=== PATIENT | male | born 1975 | race Caucasian/White ===

== ENCOUNTER 2017-01-05 14:25 | Emergency (ER) | payer SELFPAY ==
[~2017-01-05] VITALS: Ht 177.8 cm; Wt 74.8 kg
[~2017-01-05 14:25] MED LIST: No Historical Meds
[2017-01-05] MEDS ORDERED: KETOROLAC 30 MG/ML VIAL (J1885) IV ONE (16:00)
[2017-01-05] MEDS ORDERED: NS 1,000 ML IV ONE (16:00)
[2017-01-05] MEDS ORDERED: FAMOTIDINE IV BAG 20 MG in APPROPRIATE DILUENT 1 EA IV ONE (16:00)
[2017-01-05 16:30] LABS: BASO % 0.5 % (0.0-1.0); EOS # 0.1 K/mm3 (0.0-0.50); EOS % 1.2 % (0.0-3.0); LARGE UNSTAINED CELL # 0.1 K/mm3 (0.0-0.4); LARGE UNSTAINED CELL % 2.2 % (0.0-4.0); LYMPH # 0.6 K/mm3 (1.5-4.5); LYMPH % 9.6 % (24.0-44.0); MEAN CORPUSCULAR HEMOGLOBIN 31.7 pg (27.0-33.0); MEAN CORPUSCULAR HGB CONC 34.6 g/dl (32.0-36.5); MEAN CORPUSCULAR VOLUME 91.8 fl (80.0-96.0); MONO # 0.4 K/mm3 (0.0-0.8); MONO % 8.8 % (0.0-5.0); NEUTROPHILS # 3.7 K/mm3 (1.8-7.7); NEUTROPHILS % 77.6 % (36.0-66.0); PLATELET COUNT, AUTOMATED 180 k/mm3 (150-450); RED CELL DISTRIBUTION WIDTH 12.2 % (11.5-14.5); WHITE BLOOD COUNT 4.8 K/mm3 (4.0-10.0)
[2017-01-05 16:53] LABS: ALBUMIN 3.7 GM/DL (3.2-5.2); ALBUMIN/GLOBULIN RATIO 1.09 (1.00-1.93); ALKALINE PHOSPHATASE 65 U/L (45-117); ALT/SGPT 20 U/L (12-78); ANION GAP 9 MEQ/L (8-16); AST/SGOT 26 U/L (15-37); BILIRUBIN,DIRECT < 0.1 MG/DL (0.0-0.2); BILIRUBIN,TOTAL 0.2 MG/DL (0.2-1.0); BLOOD UREA NITROGEN 12 MG/DL (7-18); CALCIUM LEVEL 8.4 MG/DL (8.5-10.1); CARBON DIOXIDE LEVEL 26 MEQ/L (21-32); CHLORIDE LEVEL 103 MEQ/L (98-107); CREATININE FOR GFR 0.96 MG/DL (0.70-1.30); GLOMERULAR FILTRATION RATE > 60.0 (>60); GLUCOSE, FASTING 99 MG/DL (70-105); POTASSIUM SERUM 3.9 MEQ/L (3.5-5.1); SODIUM LEVEL 138 MEQ/L (136-145); TOTAL PROTEIN 7.1 GM/DL (6.4-8.2)
[2017-01-05] MEDS ORDERED: ZOFR4TAB3 PO (17:45)
[2017-01-05 18:01] VITALS: BP 119/69
== END 2017-01-05 18:25 | disposition home or self-care (01) ==
LOC: M ED 16:46
DX: K52.9 Noninfective gastroenteritis and colitis, unspecified (principal); F17.200 Nicotine dependence, unspecified, uncomplicated
CPT/HCPCS: 80048; 80076; 83690; 85025; 96374; 96375; 99281; J1885

== ENCOUNTER 2019-03-01 15:15 | Observation (INO) | payer OTHER, SELFPAY ==
[~2019-03-01] VITALS: Ht 177.8 cm; Wt 82.0 kg
[~2019-03-01 15:15] MED LIST changes: +ZOFR4TAB14 PO
[2019-03-01] MEDS ORDERED: NS 1,000 ML IV ONE ×2 (15:30→16:15)
[2019-03-01 15:51] LABS: BASO # 0.1 10^3/uL (0.0-0.2); BASO % 0.7 % (0.0-1.0); EOS % 0.3 % (0.0-3.0); HEMATOCRIT 48.1 % (42.0-52.0); HEMOGLOBIN 15.8 g/dl (13.5-17.5); LYMPH % 7.4 % (24.0-44.0); MEAN CORPUSCULAR HEMOGLOBIN 31.4 pg (27.0-33.0); MEAN CORPUSCULAR HGB CONC 32.8 g/dl (32.0-36.5); MEAN CORPUSCULAR VOLUME 95.6 fl (80.0-96.0); MONO # 0.7 10^3/uL (0.0-0.8); MONO % 5.4 % (0.0-5.0); NEUTROPHILS # 11.5 10^3/uL (1.8-7.7); NEUTROPHILS % 85.8 % (36.0-66.0); PLATELET COUNT, AUTOMATED 362 10^3/uL (150-450); RED BLOOD COUNT 5.03 10^6/uL (4.30-6.10); WHITE BLOOD COUNT 13.4 10^3/uL (4.0-10.0)
[2019-03-01] MEDS ORDERED: ONDANSETRON 4MG/2ML VIAL (J2405) IV ONE (16:00)
[2019-03-01 16:06] LABS: INR 0.99; PARTIAL THROMBOPLASTIN TIME 25.8 SECONDS (25.4-37.6); PROTHROMBIN TIME 13.2 SECONDS (12.1-14.4)
[2019-03-01] MEDS ORDERED: LORazepam 2 MG/ML VIAL (J2060) IV STA (16:14)
[2019-03-01 16:46] LABS: ACETAMINOPHEN LEVEL < 2.0 UG/ML (10.0-30.0); ALBUMIN 4.1 GM/DL (3.2-5.2); ALT/SGPT 21 U/L (12-78); BILIRUBIN,DIRECT 0.3 MG/DL (0.0-0.2); BILIRUBIN,TOTAL 0.8 MG/DL (0.2-1.0); BLOOD UREA NITROGEN 12 MG/DL (7-18); C REACTIVE PROTEIN QUANTITATIV < 0.30 MG/DL (0.00-0.30); CALCIUM LEVEL 9.1 MG/DL (8.5-10.1); CARBON DIOXIDE LEVEL 21 MEQ/L (21-32); CHLORIDE LEVEL 102 MEQ/L (98-107); CPK CREATINE PHOSPHOKINASE 107 U/L (39-308); CREATININE FOR GFR 0.94 MG/DL (0.70-1.30); ETHYL ALCOHOL (ETHANOL) 0.034 % (0.000-0.010); FREE T4 1.24 NG/DL (0.76-1.46); GLOMERULAR FILTRATION RATE > 60.0 (>60); GLUCOSE, FASTING 56 MG/DL (70-100); LIPASE 321 U/L (73-393); MB/CK RELATIVE INDEX 1.03 (< OR =4); POTASSIUM SERUM 4.1 MEQ/L (3.5-5.1); SODIUM LEVEL 140 MEQ/L (136-145); THYROID STIMULATING HORMONE 0.281 uIU/ML (0.358-3.740); TOTAL PROTEIN 7.2 GM/DL (6.4-8.2); TROPONIN I < 0.02 NG/ML (< 0.10)
[2019-03-01 17:32] LABS: ERYTHROCYTE SEDIMENTATION RATE 4 mm/hr (0-15)
[2019-03-01] MEDS ORDERED: PROMETHAZINE INJ 25 MG/ML VIAL (J2550) IV ONE (18:15)
[2019-03-01] MEDS ORDERED: KETOROLAC 30 MG/ML VIAL (J1885) IV ONE (18:15)
[2019-03-01] MEDS ORDERED: OXAZEPAM 10 MG CAP PO ONE (18:45)
[2019-03-01] MEDS ORDERED: ISOVUE-370 76% 100ML VIAL (Q9967) As Ordered ONE (18:54)
[2019-03-01 19:02] LABS: AMPHETAMINES LEVEL URINE NEGATIVE (NEGATIVE); BARBITURATES URINE NEGATIVE (NEGATIVE); BENZODIAZEPINES URINE NEGATIVE (NEGATIVE); CANNABINOIDS URINE POSITIVE (NEGATIVE); COCAINE METABOLITE URINE POSITIVE (NEGATIVE); METHADONE URINE NEGATIVE (NEGATIVE); OPIATES URINE NEGATIVE (NEGATIVE); PHENCYCLIDINE URINE NEGATIVE (NEGATIVE)
[2019-03-01] MEDS ORDERED: GI COCKTAIL 50ML BTL(HYOSCYAMINE/MAALOX/LIDOCAINE VISCOUS)(1:3:1) PO ONE (19:30)
--- NOTE | 2019-03-01 20:19 | REPVR ---
EXAM: CT Abdomen and Pelvis With Contrast EXAM DATE/TIME: 03/01/2019 7:11 PM CLINICAL HISTORY: 43 years old, male; Abdominal pain; Generalized TECHNIQUE: Imaging protocol: Axial computed tomography images of the abdomen and pelvis with intravenous contrast. Coronal and sagittal reformatted images were created and reviewed. Radiation optimization: All CT scans at this facility use at least one of these dose optimization techniques: automated exposure control; mA and/or kV adjustment per patient size (includes targeted exams where dose is matched to clinical indication); or iterative reconstruction. Contrast material: ISOVUE 370; Contrast volume: 100 ml; Contrast route: IV; COMPARISON: No relevant prior studies available. FINDINGS: ABDOMEN: Liver: The liver is low in density. 6 mm low density lesion in the lateral segment of the left lobe of the liver and adjacent to the falciform ligament. Gallbladder and bile ducts: Normal. No calcified stones. No ductal dilation. Pancreas: Normal. No ductal dilation. Spleen: 8mm accessory spleen anterior to the spleen below the hilum. Adrenals: Normal. No mass. Kidneys and ureters: Approximately 8 low-density lesion seen in the left kidney. 2 in the lower pole measure less than 3 mm and are not characterized due to their small size. There are 2 cysts in the lower pole measure 1.4 1.6 cm respectively which are simple cysts. There are 3 simple cysts in the mid to lower pole measuring 0.7 1.7 and 0.9 cm respectively. A 7 mm simple cyst is seen in the upper pole. On the right there is a less than 3 mm low density lesion in the lower pole not characterized due to its small size. Stomach and bowel: Air-fluid level noted within the rectum and descending colon indicating the presence of diarrhea. No bowel wall thickening. No pericolonic inflammatory change. Scattered colonic diverticula. Appendix: No evidence of appendicitis. PELVIS: Bladder: Unremarkable as visualized. Reproductive: The prostate measures 3.1 x 4.9 x 3.2 cm. ABDOMEN and PELVIS: Intraperitoneal space: Normal. No free air. No significant fluid collection. Bones/joints: No acute fracture. No dislocation. Soft tissues: Small bilateral inguinal hernias containing fat. Vasculature: Normal. No abdominal aortic aneurysm. Lymph nodes: Normal. No enlarged lymph nodes. IMPRESSION: 1. Air fluid levels noted within the descending colon and the rectosigmoid colon and dictating diarrhea. No pericolonic inflammatory changes. No bowel wall thickening. 2. Hepatic steatosis. 3. 6 mm low density lesion within the left lobe of the liver. Please see below comment section for recommendations on followup 4. Left renal cysts. There are bilateral renal lesions too small to characterize fully. See below comment section for recommendations on followup. 5. Small bilateral inguinal hernias. No signs of strangulation. COMMENT: Consistent with the [employer]'s Incidental Findings Committee Report (J Am Susan Radiol 2010): Unless the patient's specific circumstances suggest otherwise, any liver lesion 0.5 cm or less, any cystic kidney lesion less than 1.0 cm, and/or any adrenal lesion 1.0 cm or less not otherwise characterized in this report as possessing suspicious or indeterminate imaging features is/are highly likely to be benign and do not require follow-up imaging or biopsy. Electronically signed by: Valentine Hurtado On 03/01/2019 20:19:34 PM
[2019-03-02] VITALS (11 sets, daily range): BP systolic 125–146; BP diastolic 63–97
[2019-03-02] MEDS ORDERED: MOM 30ML SUSPENSION UDC PO PRN (00:45)
[2019-03-02] MEDS: ACETAMINOPHEN TAB 650MG DOSE (2X325MG) PO PRN ×4 (01:43→20:43)
[2019-03-02] MEDS: THIAMINE 100 MG TAB PO SCH ×3 (01:43→20:43)
[2019-03-02] MEDS: OXAZEPAM 10 MG CAP PO SCH ×4 (01:43→20:43)
[2019-03-02] MEDS: D5W/0.45% SODIUM CHLORIDE 1,000 ML IV SCH ×3 (01:44→17:05)
[2019-03-02] MEDS: ENOXAPARIN 40 MG/0.4 ML SYRINGE (J1650) SC SCH ×2 (01:45→20:44)
--- NOTE | 2019-03-02 06:55 | HPEPDOC ---
General Date of Admission Mar 02, 2019 at 01:10 Attending Physician: CARLOS ARELLANO MD Chief Complaint The patient is a 43-year-old male admitted with a reason for visit of Etoh Withdrawal. History of Present Illness 43-year-old male with history of active alcohol abuse, cocaine use, tobacco and marijuana use, presents to the ER after he was feeling chills, shaky, weak and tired, "felt like somebody beat me up." He states he has been on a 10 day binging spree, last drink being early this morning around midnight (~0000 03/01). His last snorted cocaine was around 3 PM yesterday on 02/28. He states he has not had anymore alcohol or cocaine since then. He denies ever going into withdrawal in the past, denies any history of seizures. Denies any IV drug abuse. In the ER, he received 1L NS, Zofran and Phenergan, Ativan, Toradol, Serax. RADHA was noted to be 0.034, tox screen positive for cocaine and cannabis. He will be admitted for concerns of alcohol and cocaine withdrawal. Home Medications No Active Prescriptions or Reported Meds Allergies Coded Allergies: No Known Allergies (Verified , 01/06/10) Past Medical History Medical History Alcoholism Cocaine use disorder Tobacco use disorder Marijuana use disorder Surgical History none Family History mother-colon ca father-lung ca Social History Admits to drinking 10-12 beers and 2 shots of liquor each day for the past 20 years Admits to snorting cocaine 4x/week for the past 20 years Smokes 1 PPD for the past 14 years Smokes marijuana 1 to 2X/month Works in [employer] A-FIB/Ecal A-FIB History Current/History of A-Fib/PAF?: No Review of Systems Other systems 10-pt ROS was asked and negative, besides as mentioned in HPI. Physical Examination Other physical findings General exam: tired appearing, A&O 3, NAD, honest about his drug usage Eye exam: PERRLA, EOMI ENT: Atraumatic, normocephalic, dry membranes moist Neck: Supple, no JVD Cardiac: RRR, normal S1 & S2, no murmurs Respiratory: CTAB, good air exchange, no wheezing, rhonchi, or rales Abdomen: hypoactive bowel sounds, soft, nontender, nondistended Extremity: 2+ radial pulses, no edema or tenderness Skin: Elaine, warm, dry, no visible rash or lesions Neuro: no focal deficits. Tongue fasciculations and mild hand tremors present Psych: flat affect Vital Signs Vital Signs Date Time Temp Pulse Resp B/P (MAP) Pulse Ox O2 Delivery O2 Flow Rate FiO2 03/02/19 02:00 90 146/82 03/02/19 00:45 20 91 Room Air 03/01/19 15:16 97.8 Laboratory Data Labs 24H Laboratory Tests 2 03/01/19 15:43: Immature Granulocyte % (Auto) 0.4, White Blood Count 13.4H, Red Blood Count 5.03, Hemoglobin 15.8, Hematocrit 48.1, Mean Corpuscular Volume 95.6, Mean Corpuscular Hemoglobin 31.4, Mean Corpuscular Hemoglobin Concent 32.8, Red Cell Distribution Width 14.0, Platelet Count 362, Neutrophils (%) (Auto) 85.8H, Lymphocytes (%) (Auto) 7.4L, Monocytes (%) (Auto) 5.4H, Eosinophils (%) (Auto) 0.3, Basophils (%) (Auto) 0.7, Neutrophils # (Auto) 11.5H, Lymphocytes # (Auto) 1.0L, Monocytes # (Auto) 0.7, Eosinophils # (Auto) 0.0, Basophils # (Auto) 0.1, Nucleated Red Blood Cells % (auto) 0.0, Erythrocyte Sedimentation Rate 4, Prothrombin Time 13.2, Prothromb Time International Ratio 0.99, Activated Partial Thromboplast Time 25.8, Anion Gap 17H, Glomerular Filtration Rate > 60.0, Calcium Level 9.1, Aspartate Amino Transf (AST/SGOT) 30, Alanine Aminotransferase (ALT/SGPT) 21, Alkaline Phosphatase 85, Total Bilirubin 0.8, Direct Bilirubin 0.3H, Total Creatine Kinase 107, Creatine Kinase MB 1.0, Creatine Kinase MB Relative Index 1.03, Troponin I < 0.02, C-Reactive Protein, Quantitative < 0.30, Total Protein 7.2, Albumin 4.1, Albumin/Globulin Ratio 1.32, Lipase 321, Thyroid Stimulating Hormone (TSH) 0.281L, Free Thyroxine 1.24, Salicylates Level 3.0L, Acetaminophen Level < 2.0L, Ethyl Alcohol Level 0.034H 03/01/19 18:26: Urine Amphetamines Screen NEGATIVE, Urine Benzodiazepines Screen NEGATIVE, Urine Opiates Screen NEGATIVE, Urine Methadone Screen NEGATIVE, Urine Barbiturates Screen NEGATIVE, Urine Phencyclidine Screen NEGATIVE, Urine Cocaine Metabolite Screen POSITIVEH, Urine Cannabinoids Screen POSITIVEH CBC/BMP Laboratory Tests 03/01/19 15:43 Red Blood Count 5.03, Mean Corpuscular Volume 95.6, Mean Corpuscular Hemoglobin 31.4, Mean Corpuscular Hemoglobin Concent 32.8, Red Cell Distribution Width 14.0, Neutrophils (%) (Auto) 85.8 H, Lymphocytes (%) (Auto) 7.4 L, Monocytes (%) (Auto) 5.4 H, Eosinophils (%) (Auto) 0.3, Basophils (%) (Auto) 0.7, Neutrophils # (Auto) 11.5 H, Lymphocytes # (Auto) 1.0 L, Monocytes # (Auto) 0.7, Eosinophils # (Auto) 0.0, Basophils # (Auto) 0.1 Assessment/Plan Acute alcohol withdrawal Drinks 10-12 beers and 2 liquor shots daily for the past 20 years. Last drink was around midnight into early Efren morning on day of admission(~0000 03/01). Tongue fasciculations and mild hand tremors, tachycardia, and fatigue/chills present. He denies ever having gone into withdrawal the past. Per reports, he was on 10 day alcohol binge. Is dehydrated on exam. Continue on IVF, CIWA protocol, MVI, folate, thiamine. Serax on board. Close monitoring on unit. Cocaine Use Disorder snorts 4x/week for past 20 yrs. Last snorted 3pm prior to admission 03/01 no signs of cocaine OD: no cp, sob, MENDOZA, or focal neurologic symptoms monitor for withdrawal: inc sleep, fatigue, depression/SI for 1-2 weeks since last cocaine use. Risk of coronary vasospasm in 1st week. Currently stable, neg trop & EKG consider starting on Disulfiram upon d/c, as studies have shown benefits in its use for cocaine cessation in addition to alcohol avoidance discuss options for rehab and o/p f/u with community living specialist when pt is more alert Cannibis Use Disorder smokes marijuana few times/month, most recently last week encouragement given to quit all illicit substances Tobacco use disorder 1 PPD for the past 14 years. Started on nicotine patch Smoking cessation provided Liver & Kidney lesions noted on CT on admission: 6mm lesion on left lobe of liver, and b/l renal lesions. Liver and kidney function surprisingly normal. Has not followed with PCP in decades. He has been made aware of results and concern for possible malignancy, especially given his strong fam hx of cancers. He is agreeable to f/u with PCP when discharged. PFS has been consulted to assist with o/p care. He will need to establish with PCP and possibly GI. Hepatosteatosis new finding on CT, likely related to heavy alcohol abuse for past 20 yrs. Pt counseled on alcohol cessation. Liver panel interestingly normal. Will require close o/p f/u. DVT ppx: Lovenox sc DISPO: admit to hospital, watch closely on monitored unit. CONTACT INFO: Patient requests that his daughter, Gerson Dixon, be updated regarding his hospitalization: [phone]. He does NOT want anyone else informed about his stay, including his friend Rigoberto who initially brought him in to ER. Plan / VTE VTE Prophylaxis Ordered?: Yes GME ATTESTATION GME ATTESTATION My faculty preceptor for this patient encounter was physically present during the encounter and was fully available. All aspects of the patient interview, examination, medical decision making process, and medical care plan development were reviewed and approved by the faculty preceptor. The faculty preceptor is aware and concurs with the plan as stated in the body of this note and will attest to such by his/her cosignature. ATTENDING NOTE I have personally examined the patient at bedside along with resident physician. I have discussed above mentioned assessment and treatment plan with resident physician. I will continue to follow the patient during entire hospital stay. TING KHAN DO Mar 02, 2019 05:49 CARLOS ARELLANO MD Mar 02, 2019 20:25
[2019-03-02 08:08] LABS: BASO # 0.1 10^3/uL (0.0-0.2); EOS # 0.1 10^3/uL (0.0-0.50); EOS % 0.9 % (0.0-3.0); HEMATOCRIT 41.2 % (42.0-52.0); LYMPH # 1.6 10^3/uL (1.5-4.5); LYMPH % 23.1 % (24.0-44.0); MEAN CORPUSCULAR HEMOGLOBIN 32.2 pg (27.0-33.0); MEAN CORPUSCULAR VOLUME 97.6 fl (80.0-96.0); MONO # 0.9 10^3/uL (0.0-0.8); MONO % 12.1 % (0.0-5.0); NEUTROPHILS # 4.4 10^3/uL (1.8-7.7); NEUTROPHILS % 62.5 % (36.0-66.0); PLATELET COUNT, AUTOMATED 274 10^3/uL (150-450); RED BLOOD COUNT 4.22 10^6/uL (4.30-6.10)
[2019-03-02 08:13] LABS: HEMOGLOBIN 13.6 g/dl (13.5-17.5)
[2019-03-02 08:30] LABS: ALBUMIN 2.8 GM/DL (3.2-5.2); ALT/SGPT 16 U/L (12-78); BILIRUBIN,TOTAL 0.4 MG/DL (0.2-1.0); BLOOD UREA NITROGEN 13 MG/DL (7-18); CALCIUM LEVEL 7.9 MG/DL (8.5-10.1); CARBON DIOXIDE LEVEL 31 MEQ/L (21-32); CHLORIDE LEVEL 105 MEQ/L (98-107); CREATININE FOR GFR 0.91 MG/DL (0.70-1.30); GLOMERULAR FILTRATION RATE > 60.0 (>60); GLUCOSE, FASTING 114 MG/DL (70-100); MAGNESIUM LEVEL 2.1 MG/DL (1.8-2.4); POTASSIUM SERUM 4.2 MEQ/L (3.5-5.1); SODIUM LEVEL 139 MEQ/L (136-145); TOTAL PROTEIN 5.7 GM/DL (6.4-8.2)
[2019-03-02] MEDS: MULTIVITAMINS/MINERALS THERAP 1 TAB PO SCH (09:50)
[2019-03-02] MEDS: FOLIC ACID 1 MG TAB PO SCH (09:50)
[2019-03-02] MEDS: NICOTINE 21MG/24HR 1 EA TRANSDERMAL TD SCH (09:51)
--- NOTE | 2019-03-02 11:13 | IPNPDOC ---
Date Seen The patient was seen on 03/02/19. Progress Note SUBJECTIVE: Patient reports feeling warm and sweating overnight. No fevers reported. He denies any SOB/CP/N/V/D at this time. OBJECTIVE PHYSICAL EXAMINATION: VITAL SIGNS: Please see below. General exam: laying in bed, calm, cooperative, in no acute distress Eye exam: PERRLA, EOMI ENT: Atraumatic, normocephalic, MMM Neck: Supple, no JVD Cardiac: RRR, normal S1 & S2, no murmurs Respiratory: CTAB without any adventitious breath sound appreciated Abdomen: soft, nontender, nondistended, +BS, no masses/organomegaly Extremity: 2+ radial pulses, no edema or tenderness Skin: [place], warm, dry, no visible rash or lesions Neuro: no focal deficits appreciated Psych: normal mood/somewhat flat affect, AAOx3 LABORATORY DATA, IMAGING STUDIES, MICROBIOLOGY: Please see below. DVT prophylaxis ordered?: Lovenox ASSESSMENT AND PLAN: This is a 43 YO M with history of multiple drug abuse who presented with weakness/fatigue after a 10 day binge on EtOH, cocaine and marijuana. He was found to have 6mm liver lesion and renal cyst on CT abd/pelvis concerning for hepatosteatosis. He is admitted to the PCU for CIWA protocol and close monitoring. PROBLEMS: 1. Alcohol withdrawal: -Continue CIWA protocol. No signs of DTs at the moment -Physical exam this morning did not demonstrate any fasciculations/tremors as documented on admission -VSS overnight -CIWA score 3 this morning. Will continue to monitor -Continue Serax - will reduce dose, Ativan PRN -Continue Folic acid, multivitamin, Thiamine -s/p fluids. Encourage oral hydration 2. Multisubstance abuse (including cocaine, cannabis, tobacco): -Continue nicotine patch -Continue plan as above 3. Liver lesion: -Plan for outpatient workup with PCP -PFS following DVT ppx: lovenox DISPOSITION: pending clinical improvement VS, I&O, 24H, Fishbone Vital Signs/I&O Vital Signs Date Time Temp Pulse Resp B/P (MAP) Pulse Ox O2 Delivery O2 Flow Rate FiO2 03/02/19 08:00 97.3 87 20 129/85 (100) 100 03/02/19 00:45 Room Air I&O- Last 24 Hours up to 6 AM 03/02/19 06:00 Intake Total 3000 ml Output Total 0 ml Balance 3000 ml Laboratory Data 24H LABS Laboratory Tests 2 03/01/19 15:43: Immature Granulocyte % (Auto) 0.4, White Blood Count 13.4H, Red Blood Count 5.03, Hemoglobin 15.8, Hematocrit 48.1, Mean Corpuscular Volume 95.6, Mean Corpuscular Hemoglobin 31.4, Mean Corpuscular Hemoglobin Concent 32.8, Red Cell Distribution Width 14.0, Platelet Count 362, Neutrophils (%) (Auto) 85.8H, Lymphocytes (%) (Auto) 7.4L, Monocytes (%) (Auto) 5.4H, Eosinophils (%) (Auto) 0.3, Basophils (%) (Auto) 0.7, Neutrophils # (Auto) 11.5H, Lymphocytes # (Auto) 1.0L, Monocytes # (Auto) 0.7, Eosinophils # (Auto) 0.0, Basophils # (Auto) 0.1, Nucleated Red Blood Cells % (auto) 0.0, Erythrocyte Sedimentation Rate 4, Prothrombin Time 13.2, Prothromb Time International Ratio 0.99, Activated Parti al Thromboplast Time 25.8, Anion Gap 17H, Glomerular Filtration Rate > 60.0, Calcium Level 9.1, Aspartate Amino Transf (AST/SGOT) 30, Alanine Aminotransferase (ALT/SGPT) 21, Alkaline Phosphatase 85, Total Bilirubin 0.8, Direct Bilirubin 0.3H, Total Creatine Kinase 107, Creatine Kinase MB 1.0, Creati ne Kinase MB Relative Index 1.03, Troponin I < 0.02, C-Reactive Protein, Quantitative < 0.30, Total Protein 7.2, Albumin 4.1, Albumin/Globulin Ratio 1.32, Lipase 321, Thyroid Stimulating Hormone (TSH) 0.281L, Free Thyroxine 1.24, Salicylates Level 3.0L, Acetaminophen Level < 2.0L, Ethyl Alcohol Level 0.034H 03/01/19 18:26: Urine Amphetamines Screen NEGATIVE, Urine Benzodiazepines Screen NEGATIVE, Urine Opiates Screen NEGATIVE, Urine Methadone Screen NEGATIVE, Urine Barbiturates Screen NEGATIVE, Urine Phencyclidine Screen NEGATIVE, Urine Cocaine Metabolite Screen POSITIVEH, Urine Cannabinoids Screen POSITIVEH 03/02/19 05:22: Phosphorus Level 3.0 03/02/19 07:41: Immature Granulocyte % (Auto) 0.4, White Blood Count 7.0, Red Blood Count 4.22L, Hemoglobin 13.6#, Hematocrit 41.2L, Mean Corpuscular Volume 97.6H, Mean Corpuscular Hemoglobin 32.2, Mean Corpuscular Hemoglobin Concent 33.0, Red Cell Distribution Width 14.0, Platelet Count 274, Neutrophils (%) (Auto) 62.5, Lymphocytes (%) (Auto) 23.1L, Monocytes (%) (Auto) 12.1H, Eosinophils (%) (Auto) 0.9, Basophils (%) (Auto) 1.0, Neutrophils # (Auto) 4.4, Lymphocytes # (Auto) 1.6, Monocytes # (Auto) 0.9H, Eosinophils # (Auto) 0.1, Basophils # (Auto) 0.1, Nucleated Red Blood Cells % (auto) 0.0, Anion Gap 3L, Glomerular Filtration Rate > 60.0, Calcium Level 7.9L, Aspartate Amino Transf (AST/SGOT) 22, Alanine Aminotransferase (ALT/SGPT) 16, Alkaline Phosphatase 60, Total Bilirubin 0.4, Total Protein 5.7#L, Albumin 2.8#L, Albumin/Globulin Ratio 0.97L, Lactic Acid Level 1.4, Blood Urea Nitrogen 13, Creatinine 0.91, Sodium Level 139, Potassium Level 4.2, Chloride Level 105, Carbon Dioxide Level 31, Magnesium Level 2.1 CBC/BMP Laboratory Tests 03/01/19 15:43 Red Blood Count 5.03, Mean Corpuscular Volume 95.6, Mean Corpuscular Hemoglobin 31.4, Mean Corpuscular Hemoglobin Concent 32.8, Red Cell Distribution Width 14.0, Neutrophils (%) (Auto) 85.8 H, Lymphocytes (%) (Auto) 7.4 L, Monocytes (%) (Auto) 5.4 H, Eosinophils (%) (Auto) 0.3, Basophils (%) (Auto) 0.7, Neutrophils # (Auto) 11.5 H, Lymphocytes # (Auto) 1.0 L, Monocytes # (Auto) 0.7, Eosinophils # (Auto) 0.0, Basophils # (Auto) 0.1 03/02/19 07:41 Red Blood Count 4.22 L, Mean Corpuscular Volume 97.6 H, Mean Corpuscular Hemoglobin 32.2, Mean Corpuscular Hemoglobin Concent 33.0, Red Cell Distribution Width 14.0, Neutrophils (%) (Auto) 62.5, Lymphocytes (%) (Auto) 23.1 L, Monocytes (%) (Auto) 12.1 H, Eosinophils (%) (Auto) 0.9, Basophils (%) (Auto) 1.0, Neutrophils # (Auto) 4.4, Lymphocytes # (Auto) 1.6, Monocytes # (Auto) 0.9 H, Eosinophils # (Auto) 0.1, Basophils # (Auto) 0.1, Calcium Level 7.9 L, Aspartate Amino Transf (AST/SGOT) 22, Alanine Aminotransferase (ALT/SGPT) 16, Alkaline Phosphatase 60, Total Bilirubin 0.4, Total Protein 5.7 #L, Albumin 2.8 #L GME ATTESTATION GME ATTESTATION My faculty preceptor for this patient encounter was physically present during the encounter and was fully available. All aspects of the patient interview, examination, medical decision making process, and medical care plan development were reviewed and approved by the faculty preceptor. The faculty preceptor is aware and concurs with the plan as stated in the body of this note and will attest to such by his/her cosignature. ATTENDING NOTE I, Justino Arevalo, have both independently examined this patient as well as reviewed the documentation. I have discussed in detail with the resident the findings and plan of treatment as documented in the residents documentation. I will continue to follow the patient and offer further guidance to the patients care as necessary during this hospital stay. SOPHIA SPENCER MD Mar 02, 2019 11:13 JUSTINO AREVALO MD Mar 02, 2019 15:40
--- NOTE | 2019-03-02 14:43 | ECGEPIP ---
Stationary ECG Study [facility] - ED Test Date: 2019-03-01 Pat Name: CROW YEE Department: Room: [place] [address] Gender: M Warp Tension Tester: dasha : 1975 Requested By: SUSIE Velásquez Order Number: [id number] Reading MD: Valarie Cabrera Measurements Intervals [place] Rate: 108 P: 79 ND: 132 QRS: 88 QRSD: 109 T: 72 QT: 334 QTc: 449 Interpretive Statements SINUS TACHYCARDIA RIGHTWARD AXIS POSSIBLE LEFT ATRIAL ENLARGEMENT INDETERMINATE AXIS INCOMPLETE RIGHT BUNDLE BRANCH BLOCK MODERATE ST DEPRESSION NO OLD ECG FOR COMPARISON Electronically Signed On 03-02-2019 14:43:33 EDT by Valarie Cabrera
[2019-03-03] VITALS (9 sets, daily range): BP systolic 137–149; BP diastolic 71–90
[2019-03-03] MEDS: LORazepam 2 MG TAB PO PRN ×2 (00:15→12:41)
[2019-03-03] MEDS ORDERED: LORazepam 2 MG/ML VIAL (J2060) IV STA (01:21)
[2019-03-03] MEDS: D5W/0.45% SODIUM CHLORIDE 1,000 ML IV SCH ×2 (02:12→09:08)
[2019-03-03] MEDS: OXAZEPAM 10 MG CAP PO SCH (04:07)
[2019-03-03 06:07] LABS: BASO # 0.1 10^3/uL (0.0-0.2); BASO % 0.9 % (0.0-1.0); EOS # 0.1 10^3/uL (0.0-0.50); EOS % 1.7 % (0.0-3.0); HEMATOCRIT 41.3 % (42.0-52.0); HEMOGLOBIN 13.4 g/dl (13.5-17.5); LYMPH # 1.3 10^3/uL (1.5-4.5); LYMPH % 20.4 % (24.0-44.0); MEAN CORPUSCULAR HEMOGLOBIN 31.7 pg (27.0-33.0); MEAN CORPUSCULAR HGB CONC 32.4 g/dl (32.0-36.5); MEAN CORPUSCULAR VOLUME 97.6 fl (80.0-96.0); MONO # 0.6 10^3/uL (0.0-0.8); MONO % 9.1 % (0.0-5.0); NEUTROPHILS # 4.4 10^3/uL (1.8-7.7); NEUTROPHILS % 67.4 % (36.0-66.0); PLATELET COUNT, AUTOMATED 256 10^3/uL (150-450); RED BLOOD COUNT 4.23 10^6/uL (4.30-6.10); WHITE BLOOD COUNT 6.6 10^3/uL (4.0-10.0)
[2019-03-03 06:39] LABS: ALBUMIN 2.8 GM/DL (3.2-5.2); ALT/SGPT 20 U/L (12-78); BILIRUBIN,TOTAL 0.4 MG/DL (0.2-1.0); BLOOD UREA NITROGEN 4 MG/DL (7-18); CALCIUM LEVEL 7.7 MG/DL (8.5-10.1); CARBON DIOXIDE LEVEL 29 MEQ/L (21-32); CHLORIDE LEVEL 110 MEQ/L (98-107); CREATININE FOR GFR 0.78 MG/DL (0.70-1.30); GLOMERULAR FILTRATION RATE > 60.0 (>60); GLUCOSE, FASTING 116 MG/DL (70-100); MAGNESIUM LEVEL 1.8 MG/DL (1.8-2.4); POTASSIUM SERUM 3.6 MEQ/L (3.5-5.1); SODIUM LEVEL 142 MEQ/L (136-145); TOTAL PROTEIN 5.7 GM/DL (6.4-8.2)
[2019-03-03] MEDS: ACETAMINOPHEN TAB 650MG DOSE (2X325MG) PO PRN ×2 (09:08→15:32)
[2019-03-03] MEDS: MULTIVITAMINS/MINERALS THERAP 1 TAB PO SCH (09:09)
[2019-03-03] MEDS: THIAMINE 100 MG TAB PO SCH (09:09)
[2019-03-03] MEDS: FOLIC ACID 1 MG TAB PO SCH (09:09)
[2019-03-03] MEDS: NICOTINE 21MG/24HR 1 EA TRANSDERMAL TD SCH (09:09)
[2019-03-03] MEDS ORDERED: OXAZEPAM 10 MG CAP PO PRN (12:15)
--- NOTE | 2019-03-03 12:22 | IPNPDOC ---
Text Note Date of Service The patient was seen on 03/03/19. NOTE Subjective: Patient is a 43-year-old male with PMHx of Alcohol abuse, Substance abuse (Marijuana and Cocaine), Active smoker, who presented to the ER with complaints of chills, body aches, and tremors. Patient was admitted to hospitalist service for further evaluation and treatment. Patient was seen and examined at the bedside. Currently he denies any nausea, vomiting, abdominal pain, constipation, diarrhea or discomfort with urination. Denies chest pain, palpitations, shortness of breath or cough. Patient does report some neck ache but denies any tremors. Objective: Vitals (See below) General: Lying in bed, no acute distress, comfortable, AAOx3 HEENT: NC, AT CVS: RRR, +S1S2 Lungs: Fair air entry b/l, -w/r/r Abdomen: Soft, ND, NT Extremities: - Edema, - Calf tenderness Assessment and plan: Alcohol withdrawal - - Patient currently does not experience tremors - Remains hemodynamically stable and afebrile - Lab work is unremarkable - s/p IV fluid hydration - c/w MVI, Thiamine, Folic acid - c/w Serax; will reduce dose / frequency and change to PRN Substance abuse (Cocaine, Marijuana) - Advised cessation Nicotine dependence - Advised cessation - c/w Nicotine dependence Liver lesion / Bilateral renal lesions - CT abdomen / pelvis 03/01: 1. Air fluid levels noted within the descending colon and the rectosigmoid colon and dictating diarrhea. No pericolonic inflammatory changes. No bowel wall thickening. 2. Hepatic steatosis. 3. 6 mm low density lesion within the left lobe of the liver. Please see below comment section for recommendations on followup 4. Left renal cysts. There are bilateral renal lesions too small to characterize fully. See below comment section for re commendations on followup. 5. Small bilateral inguinal hernias. No signs of strangulation. - Advised patient of findings on imaging; reported that at this point it is uncertain about its malignancy potential and advised him that he may require further workup including biopsy - Patient will f/u as an outpatient for further evaluation DVT prophylaxis - c/w Lovenox Disposition: - Anticipate discharge tomorrow VS,Fishbone, I+O VS, Fishbone, I+O Laboratory Tests 03/03/19 05:42 Red Blood Count 4.23 L, Mean Corpuscular Volume 97.6 H, Mean Corpuscular Hemoglobin 31.7, Mean Corpuscular Hemoglobin Concent 32.4, Red Cell Distribution Width 13.6, Neutrophils (%) (Auto) 67.4 H, Lymphocytes (%) (Auto) 20.4 L, Monocytes (%) (Auto) 9.1 H, Eosinophils (%) (Auto) 1.7, Basophils (%) (Auto) 0.9, Neutrophils # (Auto) 4.4, Lymphocytes # (Auto) 1.3 L, Monocytes # (Auto) 0.6, Eosinophils # (Auto) 0.1, Basophils # (Auto) 0.1, Calcium Level 7.7 L, Aspartate Amino Transf (AST/SGOT) 23, Alanine Aminotransferase (ALT/SGPT) 20, Alkaline Phosphatase 52, Total Bilirubin 0.4, Total Protein 5.7 L, Albumin 2.8 L Vital Signs Date Time Temp Pulse Resp B/P (MAP) Pulse Ox O2 Delivery O2 Flow Rate FiO2 03/03/19 09:00 71 138/78 03/03/19 08:00 98.3 20 97 03/02/19 00:45 Room Air I&O- Last 24 Hours up to 6 AM 03/03/19 06:00 Intake Total 3520 ml Output Total 400 ml Balance 3120 ml ROLANDO AREVALO MD Mar 03, 2019 12:22
[2019-03-03] MEDS ORDERED: FOLI1TAB11 PO (17:18)
[2019-03-03] MEDS ORDERED: MULTCAP PO (17:18)
[2019-03-03] MEDS ORDERED: THIA100TA PO (17:18)
--- NOTE | 2019-03-04 07:34 | REP ---
Oral chest x-ray: AP semi-erect view. History: Chest pain. Comparison study: February 18, 2008. Findings: EKG monitoring electrodes overlie the chest. Lungs are mildly hyperinflated but clear. Pleural angles are sharp. Heart size is normal. Pulmonary vasculature is not increased. No bony abnormality is seen. Impression: Mild hyperinflation. Otherwise no acute disease. Electronically Signed by Lior Rico MD 03/01/2019 03:47 P
--- NOTE | 2019-03-04 18:07 | DS.PDOC ---
Discharge Summary General Date of Admission Mar 02, 2019 at 01:10 Date of Discharge 03/03/2019 Discharge Summary PROCEDURES PERFORMED DURING STAY: [None]. ADMITTING DIAGNOSES / DISCHARGE DIAGNOSES: Alcohol withdrawal Substance abuse (Cocaine, Marijuana) Nicotine dependence Liver lesion / Bilateral renal lesions DVT prophylaxis COMPLICATIONS/CHIEF COMPLAINT: Tremors HISTORY OF PRESENT ILLNESS: Patient is a 43-year-old male with PMHx of Alcohol abuse, Substance abuse (Marijuana and Cocaine), Active smoker, who presented to the ER with complaints of chills, body aches, and tremors. Patient was admitted to hospitalist service for further evaluation and treatment. HOSPITAL COURSE: Alcohol withdrawal - Patient currently does not experience tremors - Remains hemodynamically stable and afebrile - Lab work is unremarkable - s/p IV fluid hydration - c/w MVI, Thiamine, Folic acid - Has not required any further Serax / Ativan Substance abuse (Cocaine, Marijuana) - Advised cessation Nicotine dependence - Advised cessation - c/w Nicotine dependence Liver lesion / Bilateral renal lesions - CT abdomen / pelvis 03/01: 1. Air fluid levels noted within the descending colon and the rectosigmoid colon and dictating diarrhea. No pericolonic inflammatory changes. No bowel wall thickening. 2. Hepatic steatosis. 3. 6 mm low density lesion within the left lobe of the liver. Please see below comment section for recommendations on followup 4. Left renal cysts. There are bilateral renal lesions too small to characterize fully. See below comment section for recommendations on followup. 5. Small bilateral inguinal hernias. No signs of strangulation. - Advised patient of findings on imaging; reported that at this point it is uncertain about its malignancy potential and advised him that he may require f urther workup including biopsy - Patient will f/u as an outpatient for further evaluation DVT prophylaxis - c/w Lovenox DISCHARGE MEDICATIONS: Please see below. ALLERGIES: Please see below. PHYSICAL EXAMINATION ON DISCHARGE: Vitals (See below) General: Lying in bed, no acute distress, comfortable, AAOx3 HEENT: NC, AT CVS: RRR, +S1S2 Lungs: Fair air entry b/l, -w/r/r Abdomen: Soft, ND, NT Extremities: - Edema, - Calf tenderness LABORATORY DATA: Please see below. ACTIVITY: [As tolerated]. DISCHARGE PLAN: Follow up with PCP within 7 days who we will help establish Remain compliant with treatment plan and medications Return to the ER if you experience any problems DISPOSITION: Home, Self-Care. DISCHARGE CONDITION: [Stable]. TIME SPENT ON DISCHARGE: Greater than [35] minutes. Vital Signs/I&Os Vital Signs Date Time Temp Pulse Resp B/P (MAP) Pulse Ox O2 Delivery O2 Flow Rate FiO2 03/03/19 16:00 95 146/84 03/03/19 16:00 98.1 16 95 03/02/19 00:45 Room Air I&O- Last 24 Hours up to 6 AM 03/04/19 06:00 Intake Total 1548 ml Balance 1548 ml Discharge Medications Scheduled Folic Acid (Folic Acid) 1 Mg Tablet, 1 MG PO DAILY Multivitamin (Multivitamins) 1 Each Capsule, 1 CAP PO DAILY Thiamine Hcl (Vitamin B-1) 100 Mg Tablet, 100 MG PO BID Allergies Coded Allergies: No Known Allergies (Verified , 01/06/10) ROLANDO AREVALO MD Mar 04, 2019 18:07
== END 2019-03-03 18:05 | disposition home or self-care (01) ==
LOC: M ED 15:15 → EDBEDREQTM 21:21 → EDBEDREQSVC 21:21 → M PCU 03-02 01:10 → M ED 03-02 01:13
PROVIDERS: ADMIT Internal Medicine; ATTEND Internal Medicine
DX: F10.239 Alcohol dependence with withdrawal, unspecified (principal); F14.10 Cocaine abuse, uncomplicated; F12.10 Cannabis abuse, uncomplicated; F17.210 Nicotine dependence, cigarettes, uncomplicated; K76.9 Liver disease, unspecified; N28.9 Disorder of kidney and ureter, unspecified; Z79.899 Other long term (current) drug therapy; Y90.7 Blood alcohol level of 200-239 mg/100 ml
CPT/HCPCS: 36415; 71045; 74177; 80048; 80053; 80076; 80307; 82550; 82553; 83605; 83690; 83735; 84100; 84439; 84443; 85025; 85610; 85652; 85730; 86140; 93005; 93041; 94760; 96361; 96372; 96374; 96375; 96376; 99285; G0480; J1650; J1885; J2060; J2405; Q9967

== ENCOUNTER 2019-05-01 07:04 | Emergency (ER) | payer OTHER ==
[~2019-05-01] VITALS: Ht 177.8 cm; Wt 76.3 kg
[~2019-05-01 07:04] MED LIST changes: +FOLI1TAB11 PO; +MULTCAP PO; +THIA100TA PO
[2019-05-01] MEDS ORDERED: MORPHINE 4 MG/ML 1ML VIAL/SYRINGE (J2270) IV ONE (07:15)
[2019-05-01 07:34] LABS: BASO # 0.1 10^3/uL (0.0-0.2); BASO % 0.9 % (0.0-1.0); EOS # 0.1 10^3/uL (0.0-0.50); EOS % 1.3 % (0.0-3.0); HEMATOCRIT 49.9 % (42.0-52.0); LYMPH # 1.5 10^3/uL (1.5-4.5); LYMPH % 15.5 % (24.0-44.0); MEAN CORPUSCULAR HEMOGLOBIN 33.6 pg (27.0-33.0); MEAN CORPUSCULAR HGB CONC 34.1 g/dl (32.0-36.5); MEAN CORPUSCULAR VOLUME 98.6 fl (80.0-96.0); MONO # 1.1 10^3/uL (0.0-0.8); MONO % 11.5 % (0.0-5.0); NEUTROPHILS # 6.7 10^3/uL (1.8-7.7); NEUTROPHILS % 70.6 % (36.0-66.0); PLATELET COUNT, AUTOMATED 259 10^3/uL (150-450); RED BLOOD COUNT 5.06 10^6/uL (4.30-6.10); WHITE BLOOD COUNT 9.5 10^3/uL (4.0-10.0)
[2019-05-01 07:44] LABS: INR 0.89; PROTHROMBIN TIME 11.8 SECONDS (11.8-14.0)
[2019-05-01 07:45] LABS: PARTIAL THROMBOPLASTIN TIME 26.8 SECONDS (25.0-38.4)
--- NOTE | 2019-05-01 07:54 | REP ---
PA and lateral chest: Comparison is 03/01/2019. The lung fleming appear hyperinflated. This is unchanged. There are no infiltrates or pleural effusions. There are no masses or nodules. The lung fleming otherwise clear. Cardiac size is normal. The matthieu, mediastinum, skeletal structures are unremarkable. Impression: Hyperinflation, unchanged from the prior study. Otherwise, negative PA and lateral chest. Electronically Signed by Sean Cullen MD 05/01/2019 07:46 A
[2019-05-01 07:59] LABS: ALBUMIN 3.5 GM/DL (3.2-5.2); ALT/SGPT 23 U/L (12-78); BILIRUBIN,DIRECT < 0.1 MG/DL (0.0-0.2); BILIRUBIN,TOTAL 0.1 MG/DL (0.2-1.0); BLOOD UREA NITROGEN 9 MG/DL (7-18); CALCIUM LEVEL 9.1 MG/DL (8.5-10.1); CARBON DIOXIDE LEVEL 29 MEQ/L (21-32); CHLORIDE LEVEL 107 MEQ/L (98-107); CK-MB VALUE MASS < 1.0 NG/ML (<3.6); CPK CREATINE PHOSPHOKINASE 64 U/L (39-308); CREATININE FOR GFR 0.83 MG/DL (0.70-1.30); GLOMERULAR FILTRATION RATE > 60.0 (>60); GLUCOSE, FASTING 81 MG/DL (70-100); LIPASE 314 U/L (73-393); MB/CK RELATIVE INDEX 1.56 (< OR =4); POTASSIUM SERUM 4.5 MEQ/L (3.5-5.1); SODIUM LEVEL 143 MEQ/L (136-145); TROPONIN I < 0.02 NG/ML (< 0.10)
--- NOTE | 2019-05-01 08:23 | REP ---
Clinical: Acute right upper quadrant pain. Technique: Real time rose scale ultrasound examination using curved array transducer. Findings: Liver and visualized pancreas are normal in contour, size, echogenicity without focal hepatic or pancreatic lesion identified. The gallbladder is normal and without gallstones, wall thickening, or pericholecystic fluid. No biliary ductal dilatation is appreciated and the common bile duct measures 3.7 mm diameter. The right kidney is normal in reniform shape and echogenicity without hydronephrosis and measures 11.8 x 6.1 x 4.7 cm. No ascites. Impression: Normal right upper quadrant/gallbladder ultrasound Electronically Signed by Leonid Leon MD 05/01/2019 08:14 A
[2019-05-01] MEDS ORDERED: ISOVUE-370 76% 100ML VIAL (Q9967) As Ordered ONE (08:40)
--- NOTE | 2019-05-01 09:06 | REP ---
Clinical: Pleuritic chest pain. Technique: Axial contrast enhanced images from the thoracic inlet to the upper abdomen using pulmonary embolus technique including multiplanar re-formations. 100 ml Isovue 370 intravenous contrast material administered without complication. Findings: Satisfactory enhancement of the pulmonary vasculature is achieved and no filling defects are identified to suggest pulmonary embolus. Thoracic aorta and heart/pericardium are normal. The bilateral lung fleming are well-aerated and without consolidation, effusion, or pneumothorax. Tracheobronchial tree is patent. No adenopathy. Surrounding musculoskeletal structures are intact. Impression: 1. No evidence for pulmonary embolus. Normal thoracic aorta. 2. No acute mediastinal or pleuroparenchymal process. Electronically Signed by Leonid Leon MD 05/01/2019 08:58 A
--- NOTE | 2019-05-01 09:16 | REP ---
Clinical: Acute right-sided abdominal pain. Technique: Axial contrast enhanced images from the lung bases to the pubic symphysis using 100 ml Isovue 370 intravenous contrast material with coronal and sagittal re-formations. Comparison: 03/01/2019. Findings: Lung bases are clear. Liver, spleen, pancreas, gallbladder, bilateral adrenal glands and kidneys are relatively normal / stable. Bilateral renal hypodensities (left greater than right) are again noted and consistent with cysts. The enteric system is without obstruction or obvious acute inflammatory process. Fluid-filled loops of small and large bowel are noted and may represent a mild enteritis. Scattered colonic and diverticula noted without acute diverticulitis. Normal terminal ileum and appendix identified in the right lower quadrant. Pelvis demonstrates normal bladder and age appropriate prostate/seminal vesicles. No ascites. No free air. No adenopathy. Abdominal aorta and vasculature normal. Surrounding musculoskeletal structures are intact. Impression: 1. No obvious acute abdominopelvic pathology appreciated. 2. Fluid-filled loops of small large bowel may represent a mild enteritis and should be correlated clinically. Electronically Signed by Leonid Leon MD 05/01/2019 09:08 A
[2019-05-01 14:41] VITALS: BP 134/61
--- NOTE | 2019-05-01 21:38 | ECGEPIP ---
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
== END 2019-05-01 14:43 | disposition home or self-care (01) ==
LOC: M ED 07:04
DX: R07.89 Other chest pain (principal); F10.10 Alcohol abuse, uncomplicated; F14.10 Cocaine abuse, uncomplicated; Z72.0 Tobacco use
CPT/HCPCS: 71046; 71275; 74177; 76705; 80048; 80076; 82550; 82553; 83690; 85025; 85610; 85730; 93005; 93041; 94760; 96374; 99285; J2270; Q9967

== ENCOUNTER → 2020-02-03 | Outpatient (REF) | payer OTHER ==
[2020-02-03 14:00] LABS: BASO # 0.1 10^3/uL (0.0-0.2); EOS # 0.2 10^3/uL (0.0-0.5); EOS % 2.3 % (0.0-3.0); HEMATOCRIT 48.9 % (42.0-52.0); HEMOGLOBIN 16.3 g/dl (13.5-17.5); LYMPH # 1.6 10^3/uL (1.5-5.0); LYMPH % 24.9 % (24.0-44.0); MEAN CORPUSCULAR HEMOGLOBIN 32.9 pg (27.0-33.0); MEAN CORPUSCULAR HGB CONC 33.3 g/dl (32.0-36.5); MEAN CORPUSCULAR VOLUME 98.6 fl (80.0-96.0); MONO # 0.6 10^3/uL (0.0-0.8); MONO % 8.4 % (0.0-5.0); NEUTROPHILS # 4.1 10^3/uL (1.5-8.5); NEUTROPHILS % 62.2 % (36.0-66.0); PLATELET COUNT, AUTOMATED 392 10^3/uL (150-450); RED BLOOD COUNT 4.96 10^6/uL (4.30-6.10); WHITE BLOOD COUNT 6.5 10^3/uL (4.0-10.0)
[2020-02-03 14:28] LABS: HEMOGLOBIN A1c 5.5 %
[2020-02-03 14:33] LABS: ALBUMIN 3.6 GM/DL (3.2-5.2); ALT/SGPT 19 U/L (12-78); BILIRUBIN,TOTAL 0.4 MG/DL (0.2-1.0); BLOOD UREA NITROGEN 8 MG/DL (7-18); CALCIUM LEVEL 9.1 MG/DL (8.5-10.1); CARBON DIOXIDE LEVEL 30 MEQ/L (21-32); CHLORIDE LEVEL 106 MEQ/L (98-107); CHOLESTEROL LEVEL 178 MG/DL (<200); CREATININE FOR GFR 0.84 MG/DL (0.70-1.30); GLOMERULAR FILTRATION RATE > 60.0 (>60); GLUCOSE, FASTING 104 MG/DL (70-100); HDL CHOLESTEROL 89 MG/DL (>40); LDL CHOLESTEROL 74 MG/DL (<100); NON-HDL-C 89 MG/DL; SODIUM LEVEL 141 MEQ/L (136-145); TOTAL 25(OH) VITAMIN D 30.3 NG/ML (30.0-100.0); TOTAL PROTEIN 7.2 GM/DL (6.4-8.2); TRIGLYCERIDES LEVEL 73 MG/DL (<150)
== END ==
LOC: M LAB REF 13:14
PROVIDERS: ATTEND Family Medicine
DX: Z00.01 Encounter for general adult medical examination with abnormal findings (principal)

== ENCOUNTER → 2020-03-03 | Outpatient (REF) | payer OTHER | LOC: M LAB REF 18:08 | PROVIDERS: ATTEND Dermatology | DX: D22.5 Melanocytic nevi of trunk (principal) ==

== ENCOUNTER 2021-06-30 11:53 | Emergency (ER) | payer OTHER ==
[~2021-06-30] VITALS: Ht 185.4 cm; Wt 76.4 kg
[2021-06-30] MEDS ORDERED: NS 1,000 ML IV ONE (12:35)
[2021-06-30] MEDS ORDERED: KETOROLAC 30 MG/ML 1ML VIAL IV ONE (12:35)
--- NOTE | 2021-06-30 13:03 | REP ---
INDICATION: left flank pain and LUQ pain COMPARISON: 05/01/2019 TECHNIQUE: Axial noncontrast images from the lung bases to the pubic symphysis with coronal and sagittal reformations. This CT examination was performed using the following dose reduction techniques: Automated exposure control, adjustment of mA and/or kv according to the patient's size, and use of iterative reconstruction technique. FINDINGS: Lung bases are clear. Visualized heart and pericardium normal. Liver, spleen, pancreas, gallbladder, bilateral adrenal glands are normal. Evaluation of the kidneys demonstrates no acute perinephric stranding, hydroureteronephrosis, intrarenal or obstructing ureteral calculi. The left kidney demonstrates multiple somewhat vague round hypodensities which appear relatively stable compared with 05/01/2019 and likely represent underlying cysts. The enteric system is unremarkable and without obstruction or acute inflammatory process. Normal terminal ileum and appendix identified in the right lower quadrant. Scattered sigmoid diverticula without acute diverticulitis. Pelvis demonstrates normal bladder and age-appropriate prostate/seminal vesicles. No ascites. No free air. No adenopathy. No focal inflammatory stranding. Abdominal aorta without aneurysm. Musculoskeletal structures are intact and without acute osseous abnormality. IMPRESSION: No acute abdominopelvic pathology appreciated. As above. <Electronically signed by Leonid Leon > 06/30/21 [id number]
[2021-06-30 13:12] LABS: BASO # 0.1 10^3/uL (0.0-0.2); BASO % 1.1 % (0.0-1.0); EOS # 0.2 10^3/uL (0.0-0.5); EOS % 2.9 % (0.0-3.0); HEMATOCRIT 50.4 % (42.0-52.0); HEMOGLOBIN 17.1 g/dl (13.5-17.5); LYMPH # 1.3 10^3/uL (1.5-5.0); LYMPH % 20.2 % (24.0-44.0); MEAN CORPUSCULAR HEMOGLOBIN 32.8 pg (27.0-33.0); MEAN CORPUSCULAR HGB CONC 33.9 g/dl (32.0-36.5); MEAN CORPUSCULAR VOLUME 96.6 fl (80.0-96.0); MONO # 0.7 10^3/uL (0.0-0.8); NEUTROPHILS # 4.3 10^3/uL (1.5-8.5); NEUTROPHILS % 65.5 % (36.0-66.0); PLATELET COUNT, AUTOMATED 304 10^3/uL (150-450); RED BLOOD COUNT 5.22 10^6/uL (4.30-6.10); WHITE BLOOD COUNT 6.6 10^3/uL (4.0-10.0)
[2021-06-30 13:57] LABS: ALBUMIN 3.5 GM/DL (3.2-5.2); ALT/SGPT 28 U/L (12-78); BILIRUBIN,DIRECT 0.1 MG/DL (0.0-0.2); BILIRUBIN,TOTAL 0.3 MG/DL (0.2-1.0); BLOOD UREA NITROGEN 8 MG/DL (7-18); CALCIUM LEVEL 9.1 MG/DL (8.5-10.1); CARBON DIOXIDE LEVEL 27 MEQ/L (21-32); CHLORIDE LEVEL 108 MEQ/L (98-107); CREATININE FOR GFR 0.84 MG/DL (0.70-1.30); GLOMERULAR FILTRATION RATE > 60.0 (>60); GLUCOSE, FASTING 83 MG/DL (70-100); LIPASE 192 U/L (73-393); POTASSIUM SERUM 4.5 MEQ/L (3.5-5.1); SODIUM LEVEL 142 MEQ/L (136-145); TOTAL PROTEIN 6.9 GM/DL (6.4-8.2)
[2021-06-30] MEDS ORDERED: NAPR-885 PO (14:30)
[2021-06-30 14:53] VITALS: BP 136/85
== END 2021-06-30 14:55 | disposition home or self-care (01) ==
LOC: M ED 11:53
DX: R10.9 Unspecified abdominal pain (principal); N28.1 Cyst of kidney, acquired; M62.838 Other muscle spasm; F17.200 Nicotine dependence, unspecified, uncomplicated
CPT/HCPCS: 74176; 80048; 80076; 81001; 83690; 85025; 99284; J1885

== ENCOUNTER 2021-09-13 21:16 | Emergency (ER) | payer OTHER ==
[~2021-09-13] VITALS: Ht 180.3 cm; Wt 75.6 kg
[2021-09-13 21:16] VITALS: BP 160/68
[~2021-09-13 21:16] MED LIST changes: +NAPR-885 PO
--- OUTSIDE RECORDS SUMMARY | 2021-09-13 21:20 | CCD ---
Author Author [facility] Organization [facility] Address Unknown Phone Unavailable Care Team Providers Care Finance Intern Name Role Phone Deepak, Tony Unavailable PROBLEMS Type Condition ICD9-CM Code CRE25-TD Code Onset Dates Condition S tatus W/U Status Risk SNOMED Code Notes Problem Melanocytic nevi of right upper limb, including shoulder D22.61 Active confirmed 133478657 Problem Melanocytic nevi of trunk D22.5 Active confirmed 958531598 Problem Durán angioma D18.01 Active confirmed 16151 01 Problem Diffuse photodamage of skin L57.8 Active confirmed 38711500 Problem Seborrheic keratoses L82.1 Active confirmed 577666945 Problem Melanocytic nevi of left upper limb, including shoulder D22.62 Active confirmed 355977419 ALLERGIES No Known Allergies ENCOUNTERS from 1975 to 2021-07-09 Encounter Location Date Provider Diagnosis [facility] Urology [address] [phone] [place] [address] Jun, Tony Sotelo IMMUNIZATIONS No Information SOCIAL HISTORY Tobacco Use: Social History Observation Description Date Details (start date - stop date) Current Smoker Sex Assigned At : Social History Observation Description Sex Assigned At Unknown Tobacco Use: Question Answer Notes Are you a: current smoker How many cigarettes a day do you smoke? 11-20 REASON FOR REFERRAL No Information VITAL SIGNS No information MEDICATIONS No Information PROCEDURES No Information RESULTS No Results REASON FOR VISIT No Information MEDICAL (GENERAL) HISTORY Type Description Date Surgical History No Surgical history information Goals Section No Information Health Concerns No Information MEDICAL EQUIPMENT No Information MENTAL STATUS No Information FUNCTIONAL STATUS No Information ASSESSMENTS No Information PLAN OF TREATMENT Next Appt Details Provider Name:Matthieu Junior, 7 02:30:00 PM, [address], , [place], [address], Insurance Providers Payer Name Payer Address Payer Phone Insured Name Patient Relati onship to Insured Coverage Start Date Coverage End Date [facility] [address] [facility] [address] [phone] CROW YEE self
--- OUTSIDE RECORDS SUMMARY | 2021-09-13 21:20 | CCD ---
Author Author [facility] Organization [facility] Address Unknown Phone Unavailable Care Team Providers Care Headlight Adjuster Name Role Phone Matthieu Junior Unavailable PROBLEMS Type Condition ICD9-CM Code LNI09-AC Code Onset Dates Condition S tatus W/U Status Risk SNOMED Code Notes Problem Melanocytic nevi of right upper limb, including shoulder D22.61 Active confirmed 427954724 Problem Melanocytic nevi of trunk D22.5 Active confirmed 519677103 Problem Durán angioma D18.01 Active confirmed 69640 01 Problem Diffuse photodamage of skin L57.8 Active confirmed 82415392 Problem Seborrheic keratoses L82.1 Active confirmed 742171653 Problem Melanocytic nevi of left upper limb, including shoulder D22.62 Active confirmed 828266718 ALLERGIES Allergen (clinical drug ingredient) Drug/Non Drug Allergy do cumented on EMR Reaction Allergy Type Onset Date Status Bee Sting Unknown Drug Allergy Active ENCOUNTERS from 1975 to 2021-08-06 Encounter Location Date Provider Diagnosis [facility] Urology [address] [phone] [place] [address] Jul, Matthieu Junior Left flank pain R10.9 IMMUNIZATIONS No Information SOCIAL HISTORY Tobacco Use: Social History Observation Description Date Details (start date - stop date) Current Smoker Sex Assigned At : Social History Observation Description Sex Assigned At Unknown Language: Question Answer Notes Languages spoken: Malagasy Sexual Hx: Question Answer Notes Had sex in the last 12 months (vaginal, oral, or anal)? No Have you ever had an STD? No Alcohol Screening: Question Answer Notes Did you have a drink containing alcohol in the past year? Ye s Points 6 Interpretation Positive How often did you have six or more drinks on one occas ion in the past year? Less than monthly (1 point) How many drinks did you have on a typica l day when you were drinking in the past year? 5 or 6 (2 points) How often did you have a drink containing alcohol in t he past year? Two to three times per week (3 points) Tobacco Use: Question Answer Notes Are you a: current smoker How many cigarettes a day do you smoke? 09-25 REASON FOR REFERRAL No Information VITAL SIGNS Weight 167 lbs Jul, Weight-kg 75.75 kg Jul, Height 70 in Jul, BMI 23.96 kg/m2 Jul, Heart Rate 109 /min Jul, Respiratory Rate 19 /min Jul, Oximetry 99 Jul, Blood pressure systolic 126 mm Hg Jul, Blood pressure diastolic 74 mm Hg Jul, MEDICATIONS No Known Medications PROCEDURES No Information RESULTS No Results REASON FOR VISIT er flank pain MEDICAL (GENERAL) HISTORY Type Description Date Medical History FLANK PAIN left side Medical History Left renal cysts of no consequence Surgical History No Surgical history information Goals Section No Information Health Concerns No Information MEDICAL EQUIPMENT No Information MENTAL STATUS No Information FUNCTIONAL STATUS No Information ASSESSMENTS Encounter Date Diagnosis Assessment Notes Treatment Notes Treatm ent Clinical Notes Jul, Left flank pain (ICD-10 - R10.9) PLAN OF TREATMENT Next Appt Details As needed Reason:Left flank pain Follow Up:As neededLeft flank pain Insurance Providers Payer Name Payer Address Payer Phone Insured Name Patient Relati onship to Insured Coverage Start Date Coverage End Date [facility] [address] [facility] [phone] CROW YEE self
--- OUTSIDE RECORDS SUMMARY | 2021-09-13 21:20 | CCD ---
Author Author [facility] Organization [facility] Address Unknown Phone Unavailable Support Name Relationship Address Phone Ty Natty GATICA Next Of Kin [address] [place] [address] RICHMOND MARRERO Next Of Kin [address] [place] [address] MERCDEES ÁLVAREZ POLI [place] [address] Unavailable ANNA MARRERO Next Of Kin Unknown [employer] Next Of Kin [address] [place] [address] UE Next Of Kin Unknown Unavailable ASHISH BALESRY Next Of Kin [address] [place] [address] RICHMOND MARRERO Next Of Kin [address] [place] [address] Re-disclosure Warning The records that you are about to access may contain information from federally-assisted alcohol or drug abuse programs. If such information is present, then the following federally mandated warning applies: This information has been disclosed to you from records protected by federal confidentiality rules (42 CFR part 2). The federal rules prohibit you from making any further disclosure of this information unless further disclosure is expressly permitted by the written consent of the person to whom it pertains or as otherwise permitted by 42 CFR part 2. A general authorization for the release of medical or other information is NOT sufficient for this purpose. The Federal rules restrict any use of the information to criminally investigate or prosecute any alcohol or drug abuse patient.The records that you are about to access may contain highly sensitive health information, the redisclosure of which is protected by Article 27-F of the [facility] Public Health law. If you continue you may have access to information: Regarding HIV / AIDS; Provided by facilities licensed or operated by the [facility] Office of Mental Health; or Provided by the [facility] Office for People With Developmental Disabilities. If such information is present, then the following [facility] mandated warning applies: This information has been disclosed to you from confidential records which are protected by state law. State law prohibits you from making any further disclosure of this information without the specific written consent of the person to whom it pertains, or as otherwise permitted by law. Any unauthorized further disclosure in violation of state law may result in a fine or fdc sentence or both. A general authorization for the release of medical or other information is NOT sufficient authorization for further disc losure. Family History Family Member Name Family Member Gender Family Member Status Date o f Status Description Data Source(s) Unknown Male Problem [facility]ENT ([facility]) Unknown Male Problem [facility]ENT ([facility]) Encounters Encounter Providers Location Date Indications Data Source(s ) Outpatient 08/28/2021 12:31:12 PM EDT - 021 01:16:17 PM EDT [facility] ([facility]) Outpatient [address] [address] 07/13/2021 12:00:00 AM EDT eCW1 ([facility]) Unknown [address] [place] [address] 07/02/2021 12:00:00 AM EDT eCW1 ([facility]) Medications No Information Insurance Providers Payer name Policy type / Coverage type Policy ID Covered republican ID Covered republican's relationship to santos Policy Santos Plan Information WORKERS COMPENSATION NOT NEEDED Patient is Insured NOT NEEDED [employer] () Workers Compensation [id number] Self [id number] [employer] Workers Compensation [id number] Self [id number] [employer] () Workers Compensation [id number] Self [id number] [employer] () Workers Compensation [id number] 2.16.840.1.860771.3. 227.99.991.948241.0 Self [id number] [employer] () Workers Compensation [id number] 2.16.840.1.783544.3. [id number] Self [id number] [employer] Workers Compensation [id number] 2.16.840.1.858452.3.227.99.991.490544.0 Self [id number] [employer] () Workers Compensation [id number] 2.16.840.1.436054.3. 227.99.991.478994.0 Self [id number] [employer] Workers Compensation [id number] 2.16.840.1.281688.3.227.99.991.274120.0 Self [id number] Or () Workers Compensation [id number] 2.16.840.1.553826.3. 227.99.991.008584.0 Self [id number] [employer] Workers Compensation [id number] 2.16.840.1.151302.3.227.99.991.245929.0 Self [id number] [employer] Workers Compensation [id number] 2.16.840.1.885129.3.227.99.991.489108.0 Self [id number] C [employer] Workers Compensation [id number] 2.16.840.1.917234.3.227.99.991.840191.0 Self [id number] [employer] () Workers Compensation [id number] 2.16.840.1.708508.3. 227.99.991.983711.0 Self [id number] C [employer] D [employer] Workers Compensation [id number] 2.16.840.1.562357.3.227.99.991.333289.0 Self [id number] [employer] () Workers Compensation [id number] 2.16.840.1.460436.3. 227.99.991.021938.0 Self [id number] C [employer] Workers Compensation [id number] 2.16.840.1.499176.3.227.99.991.935251.0 Self [id number] [employer] W [id number] Empl [id number] [employer] W [id number] Self [id number] WORKERS COMPENSATION GENERIC W [id number] Self [id number] Medicaid S [id number] S [id number] Managed Care - [facility] Community Plan P [id number] S [id number] [facility] [employer] [id number] Self [id number] [facility] [employer]. [id number] Self [id number] [facility] [id number] SP [id number] [facility] [employer] [id number] SP [id number] Self Pay P UNAVAILABLE S UNAVAILA BLE SELF PAY ONLY SP1 SP SP1 ONE CALL CARE MANAGEMENT O [id number] S [id number] SELF PAY UNAVAILABLE UNAVAILA BLE [employer] [place] [id number] SP [id number] OVER[employer] P [id number] S [id number] [employer] [place] [id number] SP [id number] SELF PAY SP [id number] S [id number] [facility] [id number] SP [id number] Problems, Conditions, and Diagnoses No Information Surgeries/Procedures No Information Results ID Date Data Source [id number] 08/28/2021 01:15:00 PM EDT [facility] Name Value Range Interpretation Code Description Data Marian rce(s) Supporting Document(s) SARS-CoV-2 RNA Resp Ql CIERRA+probe NOT DETECTED [facility] This lab was ordered by DONALD ward and reported by DONALD Adhikari. Procedure Social History Code Duration Value Status Description Data Source(s ) Smoking 07/13/2021 12:00:00 AM EDT Current Smoker completed Curre nt Smoker eCW1 ([facility]) Vital Signs ID Date Data Source UNK Name Value Range Interpretation Code Description Data Source(s) Body weight 167 [lb_av] 167 [lb_av] eCW1 ([facility]) Body weight 75.75 kg 75.75 kg eCW1 ([facility]) Body height 70 [in_i] 70 [in_i] eCW1 ([facility]) Body mass index (BMI) [Ratio] 23.96 kg/m2 23.96 kg/m2 eCW1 ([facility]) Heart rate 109 /min 109 /min eCW1 ([facility]) Respiratory rate 19 /min 19 /min eCW1 ([facility]) Systolic blood pressure 126 mm[Hg] 126 mm[Hg] e CW1 ([facility]) Diastolic blood pressure 74 mm[Hg] 74 mm[Hg] eCW1 ([facility])
--- OUTSIDE RECORDS SUMMARY | 2021-09-13 23:45 | CCD ---
Author Author [facility] Organization [facility] Address Unknown Phone Unavailable Support Name Relationship Address Phone Ty Natty GATICA Next Of Kin [address] [place] [address] RICHMOND MARRERO Next Of Kin [address] [place] [address] MERCEDES ÁLVAREZ POLI Next [place] [address] Unavailable ANNA MARRERO Next Of Kin Unknown [employer] Next Of Kin [address] [place] [address] UE Next Of Kin Unknown Unavailable ASHISH BALESRY Next Of Kin [address] [place] [address] RICHMOND MARRERO Next Of Kin [address] [place] [address] Re-disclosure Warning The records that you are [...] is protected by Article 27-F of the [facility] Public Health law. If you continue you may have access to information: Regarding HIV / AIDS; Provided by facilities licensed or operated by the [facility] Office of Mental Health; or Provided by the [facility] Office for People With Developmental Disabilities. If such information is present, then the following [facility] mandated warning applies: This information has been [...] law may result in a fine or nursing home sentence or both. A general authorization for [...] EDT - 021 01:16:17 PM EDT DocuTap ([facility]) Outpatient [address] [facility] [address] 07/13/2021 12:00:00 AM EDT eCW1 ([facility]) Unknown [address] [facility] [place] [address] 07/02/2021 12:00:00 AM EDT eCW1 ([facility]) Medications No Information Insurance Providers Payer name Policy type / Coverage type Policy ID Covered republican ID Covered republican's relationship to santos Policy Santos Plan Information WORKERS COMPENSATION NOT NEEDED Patient is Insured NOT NEEDED [employer] () Workers Compensation [id number] 12.22.840.1.178748.3. 227.99.991.541382.0 Self [id number] [employer] Workers Compensation [id number] 840.1.636070.3.227.99.991.448808.0 Self [id number] [employer] () Workers Compensation [id number] 840.1.633869.3.227.99.991.016493.0 Self [id number] [employer] () Workers Compensation [id number] 2.16.840.1.570785.3. 227.99.991.222630.0 Self [id number] [employer] () Workers Compensation [id number] 2.16.840.1.030484.3. 227.99.991.021254.0 Self [id number] [employer] Workers Compensation [id number] 2.16.840.1.770305.3.227.99.991.842227.0 Self [id number] [employer] () Workers Compensation [id number] 2.16.840.1.517800.3. 227.99.991.957676.0 Self [id number] [employer] Workers Compensation [id number] 2.16.840.1.354706.3.227.99.991.682391.0 Self [id number] Or () Workers Compensation [id number] 2.16.840.1.940215.3. 227.99.991.891448.0 Self [id number] [employer] Workers Compensation [id number] 2.16.840.1.761652.3.227.99.991.215999.0 Self [id number] [employer] Workers Compensation [id number] 2.16.840.1.287472.3.227.99.991.337678.0 Self [id number] [employer] Workers Compensation [id number] 2.16.840.1.155553.3.227.99.991.862376.0 Self [id number] [employer] () Workers Compensation [id number] 2.16.840.1.548392.3. 227.99.991.195148.0 Self [id number] [employer] Workers Compensation [id number] 2.16.840.1.075007.3.227.99.991.888044.0 Self [id number] [employer] () Workers Compensation [id number] 2.16.840.1.140452.3. 227.99.991.477846.0 Self [id number] [employer] Workers Compensation [id number] 2.16.840.1.715114.3.227.99.991.993159.0 Self [id number] [employer] W [id number] Empl [id number] ORYX W [id number] Self [id number] WORKERS COMPENSATION GENERIC W [id number] Self [id number] Medicaid S [id number] S [id number] Managed Care - [facility] Community Plan P [id number] S [id number] [facility] [employer] [id number] Self [id number] [facility] [employer]. [id number] Self [id number] [facility] [id number] SP [id number] [facility] [id number] SP [id number] Self Pay P UNAVAILABLE S UNAVAILA BLE SELF PAY ONLY SP1 SP SP1 ONE CALL CARE MANAGEMENT O [id number] S [id number] SELF PAY UNAVAILABLE UNAVAILA BLE [employer] [place] [id number] SP [id number] [employer] P [id number] S [id number] [employer] [place] [id number] SP [id number] SELF PAY SP [id number] S [id number] [facility] COMM[facility] [id number] SP [id number] Problems, Conditions, and Diagnoses No Information Surgeries/Procedures No Information Results ID Date Data Source [id number] 08/28/2021 01:15:00 PM EDT [facility] Name Value Range Interpretation Code Description Data Marian rce(s) Supporting Document(s) SARS-CoV-2 RNA Resp Ql CIERRA+probe NOT DETECTED [facility] This lab was ordered by DONALD ward and reported by DONALD Adhikari. Procedure Social History Code Duration Value Status Description Data Source(s ) Smoking 07/13/2021 12:00:00 AM EDT Current Smoker completed Curre nt Smoker eCW1 ([facility]) Vital Signs ID Date Data Source UNK Name Value Range Interpretation Code Description Data Source(s) Body weight 167 [lb_av] 167 [lb_av] eCW1 ([facility]) Body weight 75.75 kg 75.75 kg eCW1 ([facility]) Body height 70 [in_i] 70 [in_i] eCW1 ([facility]) Body mass index (BMI) [Ratio] 23.96 kg/m2 23.96 kg/m2 eCW1 ([facility]) Heart rate 109 /min 109 /min eCW1 ([facility]) Respiratory rate 19 /min 19 /min [facility] Systolic blood pressure 126 mm[Hg] 126 mm[Hg] e CW1 ([facility]) Diastolic blood pressure 74 mm[Hg] 74 mm[Hg] eCW1 ([facility])
== END 2021-09-13 23:51 | disposition left against medical advice (07) ==
LOC: M ED 21:16
DX: Z53.21 Procedure and treatment not carried out due to patient leaving prior to being seen by health care provider (principal)

== ENCOUNTER 2021-09-14 09:09 | Emergency (ER) | payer OTHER ==
[~2021-09-14] VITALS: Ht 180.3 cm; Wt 77.3 kg
--- OUTSIDE RECORDS SUMMARY | 2021-09-14 09:20 | CCD ---
Author Author [facility] Organization [facility] Address Unknown Phone Unavailable Support Name Relationship Address Phone Ty Natty GATICA Next Of Kin [address] [place] [address] RICHMOND MARRERO Next Of Kin [address] [place] [address] MERCEDES ÁLVAREZ [place] [address] Unavailable ANNA MARRERO Next Of Kin Unknown [employer] Next Of Kin [address] [place] [address] UE Next Of Kin Unknown Unavailable ASHISH BALESRY Next Of Kin [address] [place] [address] RICHMOND MARRERO Next Of Kin [address] [place] [address] Re-disclosure Warning The records that you are [...] is protected by Article 27-F of the [facility] Public Health law. If you continue you may have access to information: Regarding HIV / AIDS; Provided by facilities licensed or operated by the [facility] Office of Mental Health; or Provided by the [facility] Office for People With Developmental Disabilities. If such information is present, then the following [facility] mandated warning applies: This information [...] law may result in a fine or correction sentence or both. A general authorization for the release of medical or other information is NOT sufficient authorization for further disc losure. Family History Family Member Name Family Member Gender Family Member Status Date o f Status Description Data Source(s) Unknown Male Problem MEDENT ([facility]) Unknown Male Problem MEDENT ([facility]) Encounters Encounter Providers Location Date Indications Data Source(s ) Outpatient 08/28/2021 12:31:12 PM EDT - 021 01:16:17 PM EDT DocuTap ([facility]) Outpatient [address] [facility] [address] 07/13/2021 12:00:00 AM EDT eCW1 ([facility]) Unknown [address] [facility] [place] [address] 07/02/2021 12:00:00 AM EDT eCW1 ([facility]) Medications No Information Insurance Providers Payer name Policy type / Coverage type Policy ID Covered democrat ID Covered democrat's relationship to santos Policy Santos Plan Information WORKERS COMPENSATION NOT NEEDED Patient is Insured NOT NEEDED [employer] () Workers Compensation [id number] 12.22.840.1.986752.3. 227.99.991.729359.0 Self [id number] [employer] Workers Compensation [id number] 840.1.139143.3.227.99.991.643187.0 Self [id number] [employer] () Workers Compensation [id number] 840.1.458638.3.227.99.991.471219.0 Self [id number] [employer] () Workers Compensation [id number] 2.16.840.1.113285.3. 227.99.991.703231.0 Self [id number] [employer] () Workers Compensation [id number] 2.16.840.1.177673.3. 227.99.991.466727.0 Self [id number] [employer] Workers Compensation [id number] 2.16.840.1.776433.3.227.99.991.308296.0 Self [id number] [employer] () Workers Compensation [id number] 2.16.840.1.475732.3. 227.99.991.079967.0 Self [id number] [employer] Workers Compensation [id number] 2.16.840.1.251593.3.227.99.991.257268.0 Self [id number] Or () Workers Compensation [id number] 2.16.840.1.038552.3. 227.99.991.216687.0 Self [id number] [employer] Workers Compensation [id number] 2.16.840.1.456826.3.227.99.991.567294.0 Self [id number] [employer] Workers Compensation [id number] 2.16.840.1.885508.3.227.99.991.940983.0 Self [id number] [employer] Workers Compensation [id number] 2.16.840.1.197865.3.227.99.991.767499.0 Self [id number] [employer] () Workers Compensation [id number] 2.16.840.1.633399.3. 227.99.991.733621.0 Self [id number] [employer] Workers Compensation [id number] 2.16.840.1.201085.3.227.99.991.447007.0 Self [id number] [employer] () Workers Compensation [id number] 2.16.840.1.045276.3. 227.99.991.009457.0 Self [id number] [employer] Workers Compensation [id number] 2.16.840.1.654343.3.227.99.991.018159.0 Self [id number] [employer] W [id number] Empl [id number] [employer] W [id number] Self [id number] WORKERS COMPENSATION GENERIC W [id number] Self [id number] Medicaid S [id number] S [id number] Managed Care - [facility] Community Plan P [id number] S [id number] [facility] [employer] [id number] Self [id number] [facility] [employer]. [id number] Self [id number] [facility] [id number] SP [id number] [facility] [id number] SP [id number] Self Pay P UNAVAILABLE S UNAVAILA BLE SELF PAY ONLY SP1 SP SP1 ONE CALL CARE MANAGEMENT O [id number] S [id number] SELF PAY UNAVAILABLE UNAVAILA BLE [employer] [place] [id number] SP [id number] [employer] P [id number] S [id number] [employer] [place] [id number] SP [id number] SELF PAY SP [id number] S [id number] [facility] [id number] SP [id number] Problems, Conditions, and Diagnoses No Information Surgeries/Procedures No Information Results ID Date Data Source [id number] 08/28/2021 01:15:00 PM EDT [facility] Name Value [...] Body weight 167 [lb_av] 167 [lb_av] eCW1 ([facility]) Body weight 75.75 kg 75.75 kg eCW1 ([facility]) Body height 70 [in_i] 70 [in_i] eCW1 ([facility]) Body mass index (BMI) [Ratio] 23.96 kg/m2 23.96 kg/m2 eCW1 ([facility]) Heart rate 109 /min 109 /min eCW1 ([facility]) Respiratory rate 19 /min 19 /min eCW1 ([facility]) Systolic blood pressure 126 mm[Hg] 126 mm[Hg] e CW1 ([facility]) Diastolic blood pressure 74 mm[Hg] 74 mm[Hg] eCW1 ([facility])
[2021-09-14] MEDS ORDERED: NS 1,000 ML IV ONE (09:35)
[2021-09-14] MEDS ORDERED: ONDANSETRON 4 MG TAB PO ONE (09:55)
[2021-09-14] MEDS ORDERED: MORPHINE 4 MG/ML 1ML VIAL/SYRINGE (J2270) IV ONE (09:55)
[2021-09-14] MEDS ORDERED: ISOVUE-370 76% 100ML VIAL As Ordered ONE (09:58)
--- OUTSIDE RECORDS SUMMARY | 2021-09-14 10:15 | CCD ---
Author Author [facility] Organization [facility] Address Unknown Phone Unavailable Support Name Relationship Address Phone Ty Natty GATICA Next Of Kin [address] [place] [address] RICHMOND MARRERO Next Of Kin [address] [place] [address] MERCEDES ÁLVAREZ [place] [address] Unavailable ANNA MARRERO Next Of Kin Unknown [employer] Next Of Kin [address] [place] [address] UE Next Of Kin Unknown Unavailable ASHISH BALESRY Next Of Kin [address] [place] [address] RICHMOND MARRERO Next Of Kin [address] [place] [address] Re-disclosure Warning The records that you are [...] is protected by Article 27-F of the [facility] Public Health law. If you continue you may have access to information: Regarding HIV / AIDS; Provided by facilities licensed or operated by the [facility] Office of Mental Health; or Provided by the [facility] Office for People With Developmental Disabilities. If such information is present, then the following [facility] mandated warning applies: This information has [...] law may result in a fine or [place] [facility] [place] sentence or both. A general authorization for the release of medical or other information is NOT sufficient authorization for further disc losure. Family History Family Member Name Family Member Gender Family Member Status Date o f Status Description Data Source(s) Unknown Male Problem MEDENT ([facility]) Unknown Male Problem MEDENT ([facility]) Encounters Encounter Providers Location Date Indications Data Source(s ) Outpatient 08/28/2021 12:31:12 PM EDT - 021 01:16:17 PM EDT DocuTap ([facility]) Outpatient [address] [facility] [id number] 07/13/2021 12:00:00 AM EDT eCW1 ([facility]) Unknown [address] [place] [address] 07/02/2021 12:00:00 AM EDT eCW1 ([facility]) Medications No Information Insurance Providers Payer name Policy type / Coverage type Policy ID Covered constitution party ID Covered constitution party's relationship to santos Policy Santos Plan Information WORKERS COMPENSATION NOT NEEDED Patient is Insured NOT NEEDED [employer] () Workers Compensation [id number] 12.22.840.1.256093.3. 227.99.991.446030.0 Self [id number] [employer] Workers Compensation [id number] 840.1.899262.3.227.99.991.918696.0 Self [id number] [employer] () Workers Compensation [id number] 840.1.128969.3.227.99.991.487997.0 Self [id number] [employer] () Workers Compensation [id number] 2.16.840.1.538214.3. 227.99.991.629343.0 Self [id number] [employer] () Workers Compensation [id number] 2.16.840.1.210343.3. 227.99.991.340651.0 Self [id number] [employer] Workers Compensation [id number] 2.16.840.1.927101.3.227.99.991.235433.0 Self [id number] [employer] () Workers Compensation [id number] 2.16.840.1.281467.3. 227.99.991.700497.0 Self [id number] [employer] Workers Compensation [id number] 2.16.840.1.839558.3.227.99.991.660914.0 Self [id number] Or () Workers Compensation [id number] 2.16.840.1.319515.3. 227.99.991.634207.0 Self [id number] [employer] Workers Compensation [id number] 2.16.840.1.787357.3.227.99.991.285759.0 Self [id number] [employer] Workers Compensation [id number] 2.16.840.1.859376.3.227.99.991.447847.0 Self [id number] [employer] Workers Compensation [id number] 2.16.840.1.739490.3.227.99.991.184939.0 Self [id number] [employer] () Workers Compensation [id number] 2.16.840.1.648092.3. 227.99.991.140006.0 Self [id number] [employer] Workers Compensation [id number] 2.16.840.1.572185.3.227.99.991.234074.0 Self [id number] [employer] () Workers Compensation [id number] 2.16.840.1.138030.3. 227.99.991.284475.0 Self [id number] [employer] Workers Compensation [id number] 2.16.840.1.216828.3.227.99.991.826319.0 Self [id number] [employer] W [id number] Empl [id number] [employer] W [id number] Self [id number] WORKERS COMPENSATION GENERIC W [id number] Self [id number] Medicaid S [id number] S [id number] Managed Care - [facility] Community Plan P [id number] S [id number] [facility] [employer] Co. [id number] Self [id number] [facility] [employer] Co. [id number] Self [id number] [facility] [id number] SP [id number] COUNTS INCLUDE 234 BEDS AT [facility] COMMUNITY PLAN [facility] [id number] SP [id number] Self Pay P UNAVAILABLE S UNAVAILA BLE SELF PAY ONLY SP1 SP SP1 ONE CALL CARE MANAGEMENT O [id number] S [id number] SELF PAY UNAVAILABLE UNAVAILA BLE [employer] [place] [id number] SP [id number] [employer] P [id number] S [id number] [employer] [place] [id number] SP [id number] SELF PAY SP [id number] S [id number] COUNTS INCLUDE 234 BEDS AT [facility] COMMUNITY PLAN [facility] [id number] SP [id number] Problems, Conditions, and Diagnoses No Information Surgeries/Procedures No Information Results ID Date Data Source [id number] 08/28/2021 01:15:00 PM EDT [facility] Name Value Range Interpretation Code Description Data Marian rce(s) Supporting Document(s) SARS-CoV-2 RNA Resp Ql CIERRA+probe NOT DETECTED [facility] This lab was ordered by DONALD ward and reported by DONALD Adhikari. Procedure Social History Code Duration Value Status Description Data Source(s ) Smoking 07/13/2021 12:00:00 AM EDT Current Smoker completed Curre nt Smoker eCW1 ([facility]) Vital Signs ID Date Data Source UNK Name Value Range Interpretation Code Description Data Source(s) Body weight 167 [lb_av] 167 [lb_av] eCW1 ([facility]) Body weight 75.75 kg 75.75 kg eCW1 ([facility]) Body height 70 [in_i] 70 [in_i] eCW1 ([facility]) Body mass index (BMI) [Ratio] 23.96 kg/m2 23.96 kg/m2 eCW1 ([facility]) Heart rate 109 /min 109 /min eCW1 ([facility]) Respiratory rate 19 /min 19 /min eCW1 ([facility]) Systolic blood pressure 126 mm[Hg] 126 mm[Hg] e CW1 ([facility]) Diastolic blood pressure 74 mm[Hg] 74 mm[Hg] eCW1 ([facility])
[2021-09-14 10:26] LABS: BASO # 0.1 10^3/uL (0.0-0.2); BASO % 1.4 % (0.0-1.0); EOS # 0.1 10^3/uL (0.0-0.5); HEMATOCRIT 48.5 % (42.0-52.0); HEMOGLOBIN 16.2 g/dl (13.5-17.5); LYMPH # 1.5 10^3/uL (1.5-5.0); LYMPH % 18.5 % (24.0-44.0); MEAN CORPUSCULAR HEMOGLOBIN 32.1 pg (27.0-33.0); MEAN CORPUSCULAR HGB CONC 33.4 g/dl (32.0-36.5); MEAN CORPUSCULAR VOLUME 96.2 fl (80.0-96.0); MONO # 0.6 10^3/uL (0.0-0.8); MONO % 7.2 % (2.0-8.0); NEUTROPHILS # 5.8 10^3/uL (1.5-8.5); NEUTROPHILS % 71.5 % (36.0-66.0); PLATELET COUNT, AUTOMATED 345 10^3/uL (150-450); RED BLOOD COUNT 5.04 10^6/uL (4.30-6.10); WHITE BLOOD COUNT 8.1 10^3/uL (4.0-10.0)
--- NOTE | 2021-09-14 10:28 | REP ---
INDICATION: abdl pain. COMPARISON: 05/01/2019. TECHNIQUE: Single portable AP view of the chest was performed. FINDINGS: There is no acute infiltrate or pulmonary edema. Lungs are clear. The heart is not significantly enlarged. The mediastinal silhouette is unremarkable. The visualized osseous structures are intact. IMPRESSION: No acute pulmonary disease. <Electronically signed by Sean Duffy > 09/14/21 1024
[2021-09-14 10:39] LABS: INR 0.93; PROTHROMBIN TIME 12.9 SECONDS (12.7-14.5)
[2021-09-14 10:40] LABS: PARTIAL THROMBOPLASTIN TIME 30.1 SECONDS (25.9-37.0)
[2021-09-14 10:42] LABS: ALT/SGPT 19 IU/L (0-32); CPK CREATINE PHOSPHOKINASE 94 U/L (39-308); MB/CK RELATIVE INDEX 1.06 (< OR =4)
[2021-09-14 10:43] LABS: ACETAMINOPHEN LEVEL < 2.0 UG/ML (10.0-30.0); ALBUMIN 3.9 GM/DL (3.2-5.2); AMYLASE 129 U/L (25-115); BILIRUBIN,DIRECT 0.1 MG/DL (0.0-0.2); BILIRUBIN,TOTAL 0.4 MG/DL (0.2-1.0); ETHYL ALCOHOL (ETHANOL) < 0.003 % (0.000-0.010); FREE T4 0.88 NG/DL (0.76-1.46); LIPASE 152 U/L (73-393); THYROID STIMULATING HORMONE 0.939 uIU/ML (0.358-3.740); TOTAL PROTEIN 7.6 GM/DL (6.4-8.2); TROPONIN I < 0.02 NG/ML (< 0.10)
--- NOTE | 2021-09-14 10:43 | REP ---
INDICATION: R/O PE. COMPARISON: 05/01/2019 CTA. TECHNIQUE: CT angiogram chest performed following the intravenous administration of 100 cc of Isovue 370. Sagittal and coronal standard and MIP reconstruction images are provided. FINDINGS: Lungs: The lung fleming are well inflated. I see no pleural thickening, calcified pleural plaque, acute infiltrate or parenchymal mass. Some minor dependent atelectatic changes are seen. No definite pulmonary nodule. Mediastinum: There is no pathologic sized mediastinal adenopathy. Pulmonary arteries: No evidence of pulmonary embolism. Tala: No adenopathy. Axilla: No adenopathy. Pleura: No effusion. Heart: Not enlarged. Thoracic aorta: No aneurysm or dissection. Trace atherosclerotic calcification. No mediastinal hematoma or aortic leak. Upper abdominal structures: Those portions of liver, gallbladder, pancreas and stomach seen were unremarkable. Spleen is not enlarged. Adrenal glands are normal. The upper poles of the kidney show cortical cysts interpolar region on the left, laterally and a few mm larger than 2 years ago but otherwise stable benign appearance. Visualized osseous structures: Unremarkable. IMPRESSION: No CT evidence of pulmonary embolism.No infiltrate, atelectasis, pleural effusion or parenchymal lung mass. The thoracic aorta is without aneurysm or dissection. No new or acute finding in the chest. <Electronically signed by Shaun Jeffers > 09/14/21 1954
--- NOTE | 2021-09-14 10:44 | REP ---
INDICATION: R/O PE. COMPARISON: Multiple the latest 06/30/2021 a noncontrast enhanced examination. TECHNIQUE: Standard helical technique after the intravenous administration of 100 cc Isovue 370. FINDINGS: The lung bases are unchanged. The liver, gallbladder, spleen, pancreas, adrenal glands, and kidneys are essentially unchanged. There are tiny hepatic cysts and there are unchanged bilateral renal cysts. The abdominal aorta and para-aortic regions are within normal limits. There is no evidence of a mass or adenopathy. The bowel loops and the mesenteries are within normal limits. There is no evidence of free fluid or free air. Bone window technique throughout the examination shows the osseous structures to be stable and intact. IMPRESSION: There is no acute disease or significant change compared to prior exams. <Electronically signed by Primo Zapata > 09/14/21 0029
[2021-09-14 10:56] LABS: RSV AMPLIFICATION NEGATIVE (NEGATIVE)
[2021-09-14 12:15] VITALS: BP 127/87
--- NOTE | 2021-09-14 19:30 | ECGEPIP ---
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
== END 2021-09-14 12:22 | disposition home or self-care (01) ==
LOC: M ED 09:09
DX: R10.9 Unspecified abdominal pain (principal); F10.10 Alcohol abuse, uncomplicated; R00.0 Tachycardia, unspecified; I45.19 Other right bundle-branch block; R06.02 Shortness of breath; F17.200 Nicotine dependence, unspecified, uncomplicated
CPT/HCPCS: 71045; 71275; 74177; 80047; 80076; 80143; 81001; 82077; 82150; 82550; 82553; 83605; 83690; 84439; 84443; 85025; 85610; 85730; 87631; 93005; 93041; 96361; 96374; 99284; J2270; Q9967

== ENCOUNTER 2022-03-01 14:48 | Emergency (ER) | payer OTHER ==
[~2022-03-01] VITALS: Ht 180.3 cm; Wt 75.0 kg
[2022-03-01] MEDS ORDERED: LIDOCAINE 5% (LIDODERM) PATCH TD ONE (15:55)
[2022-03-01] MEDS ORDERED: predniSONE 20 MG TAB PO ONE (15:55)
[2022-03-01] MEDS ORDERED: GABAPENTIN 300 MG CAP PO ONE (15:55)
[2022-03-01] MEDS ORDERED: methocarbamoL 750 MG TAB PO ONE (15:55)
[2022-03-01] MEDS ORDERED: KETOROLAC 30 MG/ML 1ML VIAL IM ONE (15:55)
[2022-03-01] MEDS ORDERED: NEUR300C PO (16:54)
[2022-03-01] MEDS ORDERED: PRED20TA PO (16:54)
[2022-03-01] MEDS ORDERED: METH-1165 PO (16:54)
[2022-03-01 17:02] VITALS: BP 165/85
[2022-03-01] MEDS ORDERED: **NOTE PATIENT COMMENT** MISC XX SCH (21:00)
== END 2022-03-01 17:10 | disposition home or self-care (01) ==
LOC: M ED 14:48
DX: M51.37 Other intervertebral disc degeneration, lumbosacral region (principal); M54.32 Sciatica, left side; F17.200 Nicotine dependence, unspecified, uncomplicated; F12.10 Cannabis abuse, uncomplicated
CPT/HCPCS: 72131; 96372; 99283; J1885; J7512

== ENCOUNTER 2022-10-04 09:51 | Emergency (ER) | payer OTHER ==
[~2022-10-04] VITALS: Ht 188 cm; Wt 72.8 kg
[2022-10-04 09:51] VITALS: BP 145/90
[~2022-10-04 09:51] MED LIST changes: +METH-1165 PO; +NEUR300C PO; +PRED20TA PO
== END 2022-10-04 14:37 | disposition left against medical advice (07) ==
LOC: M ED 09:51
DX: Z53.21 Procedure and treatment not carried out due to patient leaving prior to being seen by health care provider (principal)

== ENCOUNTER 2022-12-19 12:22 | Emergency (ER) | payer OTHER ==
[~2022-12-19] VITALS: Ht 185.4 cm; Wt 76.4 kg
[2022-12-19 13:09] LABS: BASO # 0.1 10^3/uL (0.0-0.2); EOS # 0.1 10^3/uL (0.0-0.5); EOS % 0.8 % (0.0-3.0); HEMATOCRIT 47.7 % (42.0-52.0); HEMOGLOBIN 15.9 g/dl (13.5-17.5); LYMPH # 1.8 10^3/uL (1.5-5.0); LYMPH % 17.1 % (24.0-44.0); MEAN CORPUSCULAR HEMOGLOBIN 31.9 pg (27.0-33.0); MEAN CORPUSCULAR HGB CONC 33.3 g/dl (32.0-36.5); MEAN CORPUSCULAR VOLUME 95.8 fl (80.0-96.0); MONO # 0.7 10^3/uL (0.0-0.8); MONO % 6.1 % (2.0-8.0); NEUTROPHILS # 7.9 10^3/uL (1.5-8.5); NEUTROPHILS % 74.6 % (36.0-66.0); PLATELET COUNT, AUTOMATED 330 10^3/uL (150-450); RED BLOOD COUNT 4.98 10^6/uL (4.30-6.10); WHITE BLOOD COUNT 10.6 10^3/uL (4.0-10.0)
[2022-12-19 13:36] LABS: URIC ACID 5.4 MG/DL (3.7-9.2)
[2022-12-19 13:40] LABS: BLOOD UREA NITROGEN 9 MG/DL (9-23); C REACTIVE PROTEIN QUANTITATIV < 0.40 MG/DL (<1.0); CALCIUM LEVEL 9.7 MG/DL (8.5-10.1); CARBON DIOXIDE LEVEL 28 MMOL/L (20-31); CHLORIDE LEVEL 107 MMOL/L (98-107); CREATININE FOR GFR 0.91 MG/DL (0.70-1.30); GLOMERULAR FILTRATION RATE > 60.0 (>60); GLUCOSE, FASTING 74 MG/DL (60-100); SODIUM LEVEL 140 MMOL/L (136-145)
[2022-12-19 14:30] LABS: ERYTHROCYTE SEDIMENTATION RATE 12 mm/hr (0-15)
[2022-12-19 15:58] VITALS: BP 179/84
== END 2022-12-19 19:49 | disposition left against medical advice (07) ==
LOC: M ED 12:22
DX: Z53.21 Procedure and treatment not carried out due to patient leaving prior to being seen by health care provider (principal)

== ENCOUNTER 2023-12-14 08:25 | Emergency (ER) | payer OTHER, SELFPAY ==
[~2023-12-14] VITALS: Ht 177.8 cm; Wt 71.3 kg
[2023-12-14 08:26] VITALS: TEMP 95.8
[2023-12-14] MEDS: NS 1,000 ML IV ONE (09:00)
[2023-12-14] MEDS: LORazepam 2 MG/ML 1ML VIAL IV STA ×2 (09:00→09:56)
[2023-12-14 09:01] LABS: VENOUS BASE EXCESS 2.9 (-2.0-2.0); VENOUS O2 SATURATION 40.1 % (60.0-80.0); VENOUS PARTIAL PRESSURE O2 19.9 mmHg (30.0-50.0); VENOUS PH 7.421 UNITS (7.330-7.430); VENOUS STANDARD HCO3 25.4 MMOL/L; VENOUS TOTAL CO2 29.3 MMOL/L (24.0-28.0)
[2023-12-14] MEDS ORDERED: LORazepam 2 MG TAB PO PRN (09:10)
[2023-12-14 09:14] LABS: BASO # 0.1 10^3/uL (0.0-0.2); BASO % 1.1 % (0.0-1.0); EOS # 0.1 10^3/uL (0.0-0.5); EOS % 1.4 % (0.0-3.0); HEMOGLOBIN 15.4 g/dl (13.5-17.5); LYMPH # 2.4 10^3/uL (1.5-5.0); LYMPH % 24.3 % (24.0-44.0); MEAN CORPUSCULAR HEMOGLOBIN 32.2 pg (27.0-33.0); MEAN CORPUSCULAR HGB CONC 33.5 g/dl (32.0-36.5); MONO # 0.9 10^3/uL (0.0-0.8); MONO % 8.7 % (2.0-8.0); NEUTROPHILS # 6.5 10^3/uL (1.5-8.5); NEUTROPHILS % 64.3 % (36.0-66.0); PLATELET COUNT, AUTOMATED 339 10^3/uL (150-450); RED BLOOD COUNT 4.79 10^6/uL (4.30-6.10)
[2023-12-14] MEDS: THIAMINE 100 MG TAB PO SCH (09:16)
[2023-12-14] MEDS: FOLIC ACID 1MG TAB PO SCH (09:16)
[2023-12-14] MEDS: MULTIVITAMINS/MINERALS THERAP 1 TAB PO SCH (09:16)
[2023-12-14 09:18] LABS: ETHYL ALCOHOL (ETHANOL) 0.058 % (0.000-0.010)
[2023-12-14 09:20] LABS: ALBUMIN 3.7 G/DL (3.2-5.2); ALKALINE PHOSPHATASE 52 U/L (46-116); ALT/SGPT 37 U/L (7.0-40); AST/SGOT 38 U/L (<34); BILIRUBIN,DIRECT < 0.1 MG/DL (<0.4); BILIRUBIN,TOTAL 0.2 MG/DL (0.3-1.2); BLOOD UREA NITROGEN 8 MG/DL (9-23); CALCIUM LEVEL 9.4 MG/DL (8.5-10.1); CARBON DIOXIDE LEVEL 28 MMOL/L (20-31); CHLORIDE LEVEL 105 MMOL/L (98-107); CREATININE FOR GFR 0.73 MG/DL (0.70-1.30); GLOMERULAR FILTRATION RATE > 60.0 (>60); GLUCOSE, FASTING 87 MG/DL (60-100); POTASSIUM SERUM 3.8 MMOL/L (3.5-5.1); SALICYLATE LEVEL < 3.0 MG/DL (<30); SODIUM LEVEL 139 MMOL/L (136-145)
[2023-12-14 09:22] LABS: THYROID STIMULATING HORMONE 4.415 uIU/ML (0.55-4.78)
[2023-12-14 09:28] LABS: CPK CREATINE PHOSPHOKINASE 77 U/L (46-171)
[2023-12-14 09:52] LABS: AMPHETAMINES LEVEL URINE NEGATIVE (NEGATIVE)
[2023-12-14 09:53] LABS: BARBITURATES URINE NEGATIVE (NEGATIVE); BENZODIAZEPINES URINE NEGATIVE (NEGATIVE); METHADONE URINE NEGATIVE (NEGATIVE); OPIATES URINE NEGATIVE (NEGATIVE); PHENCYCLIDINE URINE NEGATIVE (NEGATIVE)
[2023-12-14 10:10] LABS: CANNABINOIDS URINE POSITIVE (NEGATIVE); COCAINE METABOLITE URINE POSITIVE (NEGATIVE)
[2023-12-14 10:27] LABS: MAGNESIUM LEVEL 1.6 MG/DL (1.8-2.4)
[2023-12-14] MEDS: MAG SULF 1GM/100ML (MAG RUN) 1 GM in IV 1 EA IV ONE (11:20)
[2023-12-14 11:44] LABS: RSV AMPLIFICATION NEGATIVE (NEGATIVE)
[2023-12-14] MEDS: OXAZEPAM 15MG CAP PO ONE (13:13)
[2023-12-14] MEDS: LORazepam 2 MG TAB PO PRN (14:13)
[2023-12-14 15:00] VITALS: BP 97/53; O2SAT 95
[2023-12-14] MEDS ORDERED: THIAMINE 100 MG TAB PO SCH (21:00)
[2023-12-15] MEDS ORDERED: MULTIVITAMINS/MINERALS THERAP 1 TAB PO SCH (09:00)
[2023-12-15] MEDS ORDERED: FOLIC ACID 1MG TAB PO SCH (09:00)
== END 2023-12-14 15:38 | disposition home or self-care (01) ==
LOC: M ED 08:25
DX: F10.10 Alcohol abuse, uncomplicated (principal); R00.0 Tachycardia, unspecified; I51.7 Cardiomegaly; I45.19 Other right bundle-branch block; F19.10 Other psychoactive substance abuse, uncomplicated; F17.200 Nicotine dependence, unspecified, uncomplicated; Z91.030 Bee allergy status
CPT/HCPCS: 80048; 80076; 80143; 80307; 82077; 82550; 82803; 83605; 83735; 84443; 85025; 87631; 93005; 93041; 94760; 96361; 96365; 96375; 99285; J2060; J3475

== ENCOUNTER 2023-12-17 03:40 | Emergency (ER) | payer OTHER, SELFPAY ==
[~2023-12-17] VITALS: Ht 177.8 cm; Wt 71.2 kg
[2023-12-17 04:45] LABS: BASO # 0.1 10^3/uL (0.0-0.2); BASO % 0.6 % (0.0-1.0); EOS # 0.1 10^3/uL (0.0-0.5); EOS % 1.4 % (0.0-3.0); HEMATOCRIT 43.6 % (42.0-52.0); HEMOGLOBIN 15.1 g/dl (13.5-17.5); LYMPH # 2.4 10^3/uL (1.5-5.0); LYMPH % 30.4 % (24.0-44.0); MEAN CORPUSCULAR HEMOGLOBIN 32.4 pg (27.0-33.0); MEAN CORPUSCULAR HGB CONC 34.6 g/dl (32.0-36.5); MEAN CORPUSCULAR VOLUME 93.6 fl (80.0-96.0); MONO # 0.6 10^3/uL (0.0-0.8); NEUTROPHILS # 4.7 10^3/uL (1.5-8.5); NEUTROPHILS % 60.3 % (36.0-66.0); PLATELET COUNT, AUTOMATED 306 10^3/uL (150-450); RED BLOOD COUNT 4.66 10^6/uL (4.30-6.10); WHITE BLOOD COUNT 7.9 10^3/uL (4.0-10.0)
[2023-12-17 05:12] LABS: ETHYL ALCOHOL (ETHANOL) 0.207 % (0.000-0.010)
[2023-12-17 05:14] LABS: ALBUMIN 3.7 G/DL (3.2-5.2); ALKALINE PHOSPHATASE 52 U/L (46-116); ALT/SGPT 35 U/L (7.0-40); AST/SGOT 28 U/L (<34); BILIRUBIN,TOTAL 0.3 MG/DL (0.3-1.2); BLOOD UREA NITROGEN 9 MG/DL (9-23); CALCIUM LEVEL 8.7 MG/DL (8.5-10.1); CARBON DIOXIDE LEVEL 27 MMOL/L (20-31); CHLORIDE LEVEL 106 MMOL/L (98-107); CREATININE FOR GFR 0.65 MG/DL (0.70-1.30); GLOMERULAR FILTRATION RATE > 60.0 (>60); GLUCOSE, FASTING 78 MG/DL (60-100); MAGNESIUM LEVEL 1.9 MG/DL (1.8-2.4); POTASSIUM SERUM 3.9 MMOL/L (3.5-5.1); SODIUM LEVEL 140 MMOL/L (136-145); TOTAL PROTEIN 6.9 G/DL (5.7-8.2)
[2023-12-17 05:15] LABS: RSV AMPLIFICATION NEGATIVE (NEGATIVE)
[2023-12-17] MEDS ORDERED: LORazepam 2 MG TAB PO PRN (05:30)
[2023-12-17 05:36] LABS: AMPHETAMINES LEVEL URINE NEGATIVE (NEGATIVE); BARBITURATES URINE NEGATIVE (NEGATIVE); BENZODIAZEPINES URINE NEGATIVE (NEGATIVE); METHADONE URINE NEGATIVE (NEGATIVE); OPIATES URINE NEGATIVE (NEGATIVE); PHENCYCLIDINE URINE NEGATIVE (NEGATIVE)
[2023-12-17] MEDS: ALPRAZolam 0.5 MG TAB PO ONE (05:42)
[2023-12-17 05:43] LABS: CANNABINOIDS URINE POSITIVE (NEGATIVE); COCAINE METABOLITE URINE POSITIVE (NEGATIVE)
[2023-12-17] MEDS: LORazepam 2 MG TAB PO PRN (06:52)
[2023-12-17] MEDS: OXAZEPAM 15MG CAP PO ONE (14:27)
[2023-12-17] MEDS ORDERED: OXAZEPAM 15MG CAP PO ONE (20:00)
[2023-12-17 21:00] VITALS: BP 131/100; TEMP 98; O2SAT 98
== END 2023-12-17 21:05 | disposition short-term general hospital (02) ==
LOC: M ED 03:40
DX: F19.20 Other psychoactive substance dependence, uncomplicated (principal); F10.10 Alcohol abuse, uncomplicated; I45.10 Unspecified right bundle-branch block; Z87.891 Personal history of nicotine dependence; Z91.030 Bee allergy status